=== PATIENT | female | born 1975 | race Caucasian/White ===

== ENCOUNTER 2022-07-15 12:01 | Outpatient (CLI) | payer OTHER, SELFPAY ==
[2022-07-15 13:22] LABS: Cholesterol* 215 mg/dL (90-199); Triglycerides* 217 mg/dL (40-149)
[2022-07-15 14:49] LABS: HDL Cholesterol* 97 mg/dL (>=50)
[2022-07-15 14:59] LABS: LDL Cholesterol Calculated 75 mg/dL (<100)
== END 2022-07-15 12:02 | disposition home or self-care (01) ==
PROVIDERS: PCP Family Medicine; Visit Provider Family Medicine
DX: E03.9 Hypothyroidism, unspecified (principal); I10 Essential (primary) hypertension; F41.9 Anxiety disorder, unspecified; Z13.6 Encounter for screening for cardiovascular disorders
CPT/HCPCS: 80061; 84443

== ENCOUNTER 2022-08-12 10:00 | Outpatient (CLI) | payer OTHER, SELFPAY | END 2022-08-12 10:01 | disposition home or self-care (01) | PROVIDERS: PCP Family Medicine; Visit Provider Internal Medicine | DX: Z12.11 Encounter for screening for malignant neoplasm of colon (principal); K57.30 Diverticulosis of large intestine without perforation or abscess without bleeding | CPT/HCPCS: 45378; J2250; J3010 ==

== ENCOUNTER 2023-01-10 12:28 | Emergency (ER) | payer OTHER, SELFPAY ==
[2023-01-10] VITALS (10 sets, daily range): BP systolic 117–132; BP diastolic 79–98; PULSE 92–113; RESP 16; TEMP 36.8; O2SAT 97–100; BMI 25.1
--- NOTE | 2023-01-10 12:53 | ED.NAVMDI ---
HPI - Nausea/Vomiting/Diarrhea General Time Seen by Provider: 12:53 Date Seen: 01/10/23 Chief complaint: Nausea/Vomiting Stated complaint: Vomiting Time Seen by Provider: 01/10/23 12:43 Source: patient and RN notes reviewed Mode of arrival: ambulatory Limitations: no limitations History of Present Illness HPI Narrative: This 47-year-old female is ambulatory to the ED with concern of inability to keep anything down with nausea vomiting and some diarrhea. She became ill on Monday right around 4:00 p.m.. States she felt a hot flash and then proceeded to have nausea vomiting. This has been primarily nausea and vomiting, she has had a little diarrhea. She really has not had any abdominal pain with this. Sometimes she will feel little twist sensation but she states it is absolutely not painful, would not describe it as pain. She really can not keep anything down, is trying just sips of fluids. She feels weak and dry. She is not aware of any ill contacts, no travel. She has a history of C difficile colitis and states this is nothing like it, that has a distinct odor, she has had not much the way of diarrhea compare to that. 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 She states she picked the C difficile up in the hospital during that surgery. She has had no fevers or chills. She has had some hot flashes the last 3 days but no documented fever. No blood in the vomit or diarrhea. Her daughter had oral Zofran which she tried, really did not help her. MD elicited complaint: nausea and vomiting Related Data Previous Rx's Medication Instructions Recorded amlodipine 5 mg tablet 5 mg PO QDAY #90 tabs 07/19/22 levothyroxine 150 mcg tablet 150 mcg PO QDAY #90 tabs 07/19/22 (Synthroid) levothyroxine 25 mcg tablet 12.5 mcg (1/2 x 25 mcg) PO QDAY 07/19/22 (Synthroid) #45 tabs peg 3350-electrolytes 236 240 ml PO Q10M #4,000 mL 07/19/22 gram-22.74 gram-6.74 gram-5.86 gram solution (Golytely) sertraline 100 mg tablet 150 mg (1.5 x 100 mg) PO QDAY #135 07/19/22 tabs prochlorperazine maleate 5 mg 5 mg PO TID PRN #10 tabs 01/10/23 tablet (Compazine) Allergies Allergy/AdvReac Type Severity Reaction Status Date / Time morphine Allergy Severe Nausea Verified 01/10/23 12:36 Review of Systems Status of ROS: Reports: 6 or more systems reviewed and unremarkable except as noted in History and below [facility] Medical History Mediastinal lymphadenopathy (03/28/13) ?R59.0 - Localized enlarged lymph nodes (ICD-10) History of wheezing ?Z87.898 - Personal history of other specified conditions (ICD-10) Dysfunctional uterine bleeding ?N93.8 - Other specified abnormal uterine and vaginal bleeding (ICD-10) Deep vein thrombosis ?I82.409 - Acute embolism and thrombosis of unspecified deep veins of unspecified lower extremity (ICD-10) Cystitis ?N30.90 - Cystitis, unspecified without hematuria (ICD-10) Cervical cancer (05/18/11) ?C53.9 - Malignant neoplasm of cervix uteri, unspecified (ICD-10) Acute cholecystitis due to biliary calculus ?K80.00 - Calculus of gallbladder with acute cholecystitis without obstruction (ICD-10) Surgical History Status post laparoscopic hysterectomy ?Z90.710 - Acquired absence of both cervix and uterus (ICD-10) Status post laparoscopic cholecystectomy ?Z90.49 - Acquired absence of other specified parts of digestive tract (ICD-10) History of hysteroscopy ?Z98.890 - Other specified postprocedural states (ICD-10) Social History Smoking Status: Former smoker Do you use any of these nicotine containing products: None Second hand tobacco smoke exposure: No How often do you have a drink containing alcohol: 2-3 times a week How many standard drinks containing alcohol do you have on a typical day: 3 or 4 AUDIT-C Alcohol total score: 4 Non-prescribed substance use: denies use Little interest or pleasure in doing things: not at all Feeling down, depressed, or hopeless: not at all service: No Exam Const: Vital Signs, click to edit/add: Vital Signs - 24 hr 01/10/23 12:37 01/10/23 13:12 01/10/23 13:13 Temperature 98.2 F Pulse Rate 98 101 H Pulse Rate [Pulse Oximeter] 113 H Respiratory Rate 16 Blood Pressure 117/97 H Blood Pressure [Ri ght Upper Arm] 122/79 Pulse Oximetry 97 100 100 Oxygen Delivery Me thod Room Air 01/10/23 13:34 01/10/23 13:35 Temperature Pulse Rate 106 H 103 H Pulse Rate [Pulse Oximeter] Respiratory Rate Blood Pressure 132/96 H Blood Pressure [Ri ght Upper Arm] Pulse Oximetry 100 100 Oxygen Delivery Me thod Documenting provider has reviewed patient's vital signs: yes Common normals: no apparent distress, average body habitus, oriented x3, no limitations, healthy appearing, alert and well nourished General appearance: cooperative, comfortable, well kempt and well developed HENMT: Common normals: normocephalic, head/scalp atraumatic, hearing grossly normal bilaterally and external ears normal Head and scalp: normal to inspection, normocephalic and atraumatic Face and sinus: normal facial exam External ear: external ears normal Eye: Common normals: PERRL, EOMs intact bilaterally, conjunctivae normal and no scleral icterus Conjunctiva: conjunctiva(e) normal Pupil: PERRL Neck & C-Spine: Common normals: full ROM, no lymphadenopathy and supple Resp: Common normals: normal respiratory effort, no retractions, no use of accessory muscles and clear to auscultation bilaterally Effort & inspection: able to speak in complete sentences Auscultation: clear to auscultation bilaterally Cardio: Common normals: regular rhythm, S1 normal heart sound, S2 normal heart sound, no gallops, no clicks and no murmurs Rate: tachycardic Rhythm: regular rhythm Heart sounds: S1 normal and S2 normal GI: Common normals: soft to palpation, non-tender, no hepatosplenomegaly and no masses Auscultation: hypoactive bowel sounds Palpation: soft and no hepatosplenomegaly Neuro: Common normals: oriented x3 Sensorium/orientation: alert Psych: Appearance: well kempt Course Course Hospital Course: 47-year-old female with primary nausea vomiting, some diarrhea since Monday with probable dehydration based on mildly tachycardic response. Will initiate an IV, give her L of fluids to start 4 mg IV Zofran. We will see if there is any response to the IV Zofran, consider alternative medications if this does not help her. Will get some baseline labs, do flat and upright of the abdomen just to ensure normal bowel in no concerning findings. Likely gastroenteritis but need to rule out partial bowel obstruction. If there is significant alterations in her labs or plain films, may need further imaging with CT. Reevaluation(s) Time of Reevaluation #1: 14:49 Reevaluation #1: Patient is feeling better, tolerated some crackers and orals here. She actually declined a 2nd bag of IV fluids she felt much better after 1 L of fluids and IV Zofran. Discussed nausea management at home. Her daughter has some Zofran which did not help her at home. We discussed trying some oral Compazine, she would like prescription for that. Reviewed reassuring labs, abdominal imaging not suggestive of any obstructive process. Vital Signs Vital signs: Initial Vital Signs Temperature 98.2 F 01/10/23 12:37 Temperature Source Temporal Artery Scan 01/10/23 12:37 Pulse Rate 113 H 01/10/23 12:37 Pulse Rhythm Regular 01/10/23 12:37 Pulse Strength 3+ Normal 01/10/23 12:37 Respiratory Rate 16 01/10/23 12:37 Blood Pressure 122/79 01/10/23 12:37 Blood Pressure Mean 93 01/10/23 12:37 Blood Pressure Position Sitting 01/10/23 12:37 Pulse Oximetry 97 01/10/23 12:37 Oxygen Delivery Method Room Air 01/10/23 12:37 Vital Signs Temperature 98.2 F 01/10/23 12:37 Pulse Rate 113 H 01/10/23 12:37 Respiratory Rate 16 01/10/23 12:37 Blood Pressure 122/79 01/10/23 12:37 Pulse Oximetry 97 01/10/23 12:37 Oxygen Delivery Method Room Air 01/10/23 12:37 Temperature 98.2 F 01/10/23 12:37 Pulse Rate 103 H 01/10/23 13:35 Respiratory Rate 16 01/10/23 12:37 Blood Pressure 132/96 H 01/10/23 13:35 Pulse Oximetry 100 01/10/23 13:35 Oxygen Delivery Method Room Air 01/10/23 12:37 MDM - Nausea/Vomiting/Diarrhea Differential Diagnosis Differential diagnosis: Likely traveler's diarrhea, food poisoning, gastroenteritis, clostridium difficile infection and dehydration Lab Data Attestation: I reviewed the patient's lab results. Labs: Lab Results 01/10/23 Range/Units 13:15 WBC 5.31 (4.50-11.00) K/uL RBC 3.41 L (4.00-5.20) m/uL Hgb 13.7 (12.0-16.0) gm/dL Hct 38.5 (33.0-51.0) % MCV 113 H (80-100) fL MCH 40 H (26-34) pg MCHC 36 (32-36) gm/dL RDW Coeff of Bet[place] 12.8 (11.5-15.5) % Plt Count 280 (140-440) K/uL Neut % (Auto) 75.0 H (42.0-72.0) % Lymph % (Auto) 14.9 L (20-44) % Kern % (Auto) 5.8 (0.0-11.0) % Eos % (Auto) 3.2 (0.0-7.0) % Baso % (Auto) 0.9 (0.0-3.0) % Neut # (Auto) 4.00 (1.7-7.0) K/uL Lymph # (Auto) 0.80 L (0.90-2.90) K/uL Kern # (Auto) 0.30 (0.00-0.90) K/UL Eos # (Auto) 0.17 (0.00-0.50) K/uL Baso # (Auto) 0.05 (0.00-0.30) K/uL Abs Immat Gran (auto) 0.01 (0.00-0.30) K/uL Imm/Tot Granulo (auto) 0.2 % Sodium 135 (135-149) mmol/L Potassium 3.4 L (3.6-5.1) mmol/L Chloride 101 (96-114) mmol/L Carbon Dioxide 24 (20-32) mmol/L BUN 11 (5-24) mg/dL Creatinine 0.7 (0.5-1.5) mg/dL Estimated Creat Clear 94.54 Estimated GFR 106 ml/min Glucose 108 (60-115) mg/dL Lactate 1.4 (0.5-1.9) mmol/L Calcium 9.4 (8.4-10.6) mg/dL Total Bilirubin 1.6 H (0.1-1.5) mg/dL AST 43 H (12-35) U/L ALT 19 (4-35) U/L Alkaline Phosphatase 93 (40-150) U/L C-Reactive Protein 0.5 (0.5-1.0) mg/dL Total Protein 8.8 H (6.0-8.3) g/dL Albumin 4.8 (3.3-5.0) g/dL Imaging Data Abdominal x-ray: Attestation: I have reviewed the pertinent imaging results. My impression: I see no obstructive change on my preliminary review. Radiologist's impression: Patient: JOCE SANCHEZ Facility:?[facility] Patient ID:?[id number] Site Patient ID:?[id number]. Site :?[id number] Study:?XRay Abdomen 2v-01/10/2023 1:46:43 PM Ordering Physician:Maryellen Barakat Final Report: INDICATION: Nausea and vomiting. TECHNIQUE: Flat and upright views of the abdomen and pelvis. FINDINGS: No free air on the upright image. Postsurgical changes left upper quadrant. Clear included lung bases. Calcified splenic granulomas. Surgically absent gallbladder. No radiodense urinary tract calculi identified. No bowel obstruction or ileus. Few calcified pelvic phleboliths on the left. IMPRESSION: Nonspecific bowel gas pattern without obstruction or ileus. Paucity of small bowel gas. Postsurgical change within the right and left upper quadrants. Dictated by Domo Franco MD @ 01/10/2023 2:15:42 PM (Electronic Signature) Discharge Plan Discharge Clinical Impression: Gastroenteritis Patient Disposition: Home, Self-Care Condition: Stable Instructions: Gastroenteritis (ED) Additional Instructions: Small frequent sips of clears to avoid further vomiting. Can use Compazine and see if that helps with subsequent nausea. If you are not improving over the next couple days, feel you are worsening at any point, develops increased abdominal pain with any vomiting or fever, any bloody diarrhea or vomit, do need to be re-evaluated. Activity Level: Activity as Tolerated Prescriptions: New prochlorperazine maleate [Compazine] 5 mg tablet 5 mg PO TID PRNQty: 10 0RF No Action peg 3350-electrolytes [Golytely] 236-22.74-6.74 -5.86 gram recon soln 240 ml PO Q10M Qty: 4000 0RF Rx Instructions: until fecal effluent is clear levothyroxine [Synthroid] 150 mcg tablet 150 mcg PO QDAY Qty: 90 3RF Patient Comments: take 1 tablet by mouth once daily. Rx Instructions: TOTAL DAILY DOSE = 162.5MCG levothyroxine [Synthroid] 25 mcg tablet 12.5 mcg PO QDAY Qty: 45 3RF Rx Instructions: TOTAL DAILY DOSE = 162.5MCG amlodipine 5 mg tablet 5 mg PO QDAY Qty: 90 3RF Patient Comments: TAKE ONE TABLET BY MOUTH ONE TIME DAILY sertraline 100 mg tablet 150 mg PO QDAY Qty: 135 3RF Patient Comments: take 1.5 tablets by mouth once daily. Follow Up/Referrals: Adrian Martin MD [Primary Care Provider] - Stand Alone Forms: ID.me Info Instructions
--- NOTE | 2023-01-10 12:59 | CRLHL7_ITS ---
For Patients: As a result of the Century Cures Act, medical imaging exams and procedure reports are released immediately into your electronic medical record. You may view this report before your referring provider. If you have questions, please contact your health care provider. INDICATION: Nausea and vomiting. TECHNIQUE: Flat and upright views of the abdomen and pelvis. FINDINGS: No free air on the upright image. Postsurgical changes left upper quadrant. Clear included lung bases. Calcified splenic granulomas. Surgically absent gallbladder. No radiodense urinary tract calculi identified. No bowel obstruction or ileus. Few calcified pelvic phleboliths on the left. IMPRESSION: Nonspecific bowel gas pattern without obstruction or ileus. Paucity of small bowel gas. Postsurgical change within the right and left upper quadrants. Dictated by Domo Franco MD @ 01/10/2023 2:15:42 PM (Electronically Signed)
[2023-01-10] MEDS: 0.9 % SODIUM CHLORIDE 1000 ml 1,000 ML IV (13:15)
[2023-01-10] MEDS: ONDANSETRON 2 MG/ML inj 4 MG IVP (13:15)
[2023-01-10 13:20] LABS: Lactate* 1.4 mmol/L (0.5-1.9)
[2023-01-10 13:24] LABS: Basophils Absolute Auto 0.05 K/uL (0.00-0.30); Basophils Percent Auto 0.9 % (0.0-3.0); Eosinophils Absolute Auto 0.17 K/uL (0.00-0.50); Eosinophils Percent Auto 3.2 % (0.0-7.0); Hematocrit 38.5 % (33.0-51.0); Hemoglobin* 13.7 gm/dL (12.0-16.0); Immature Granulocytes Abs Auto 0.01 K/uL (0.00-0.30); Immature Granulocytes Pct Auto 0.2 %; Lymphocytes Percent Auto 14.9 % (20-44); Mean Corpuscular HGB Conc 36 gm/dL (32-36); Mean Corpuscular Hemoglobin 40 pg (26-34); Mean Corpuscular Volume 113 fL (80-100); Monocytes Percent Auto 5.8 % (0.0-11.0); Platelet Count* 280 K/uL (140-440); RDW Coefficient of Variation % 12.8 % (11.5-15.5); Red Blood Count 3.41 m/uL (4.00-5.20); White Blood Count* 5.31 K/uL (4.50-11.00)
[2023-01-10 13:32] LABS: Slide Review Reflex Yes
[2023-01-10 13:38] LABS: Albumin* 4.8 g/dL (3.3-5.0); Chloride* 101 mmol/L (96-114); Potassium* 3.4 mmol/L (3.6-5.1); Sodium* 135 mmol/L (135-149)
[2023-01-10 13:40] LABS: Bilirubin Total* 1.6 mg/dL (0.1-1.5); Creatinine* 0.7 mg/dL (0.5-1.5); Est. Creatinine Clearance* 94.54; Estimated Glomerular Filt Rate 106 ml/min
[2023-01-10 13:41] LABS: Alanine Aminotransferase* 19 U/L (4-35); Alkaline Phosphatase* 93 U/L (40-150); Aspartate Amino Transferase* 43 U/L (12-35); Blood Urea Nitrogen* 11 mg/dL (5-24); Carbon Dioxide* 24 mmol/L (20-32); Glucose* 108 mg/dL (60-115); Total Protein* 8.8 g/dL (6.0-8.3)
[2023-01-10 13:42] LABS: Calcium* 9.4 mg/dL (8.4-10.6)
[2023-01-10 13:44] LABS: C Reactive Protein* 0.5 mg/dL (0.5-1.0)
--- NOTE | 2023-01-10 14:25 | ED.NURSE ---
Pt feeling much better after zofran and fluids. Pt requesting crackers, ok'd by Dr. Smith. Crackers and water given.
--- NOTE | 2023-01-10 15:05 | ED.NURSE ---
Pt able to tolerate crackers and oral fluids. Dr. Smith notified.
[2023-01-10 18:22] LABS: Slide Review Acceptable Review (Acceptable)
== END 2023-01-10 15:06 | disposition home or self-care (01) ==
PROVIDERS: Emergency Provider Family Medicine; PCP Family Medicine
DX: K52.9 Noninfective gastroenteritis and colitis, unspecified (principal)
CPT/HCPCS: 36415; 74019; 80053; 83605; 85025; 86140; 96361; 96374; 99284; J2405; J7030

== ENCOUNTER 2023-05-15 13:37 | Outpatient (CLI) | payer OTHER, SELFPAY ==
--- NOTE | 2023-05-15 13:40 | CRLHL7_ITS ---
For Patients: As a result of the Century Cures Act, medical imaging exams and procedure reports are released immediately into your electronic medical record. You may view this report before your referring provider. If you have questions, please contact your health care provider. BILATERAL SCREENING MAMMOGRAM WITH COMPUTER-AIDED DETECTION AND TOMOSYNTHESIS TECHNIQUE: CC and MLO views were obtained. These mammographic images have been obtained using full-field digital technique. These mammographic images were interpreted with the benefit of computer-aided detection. Breast Tomosynthesis was used in this interpretation. COMPARISON FILM: 10/20/21, 09/06/18, 05/25/17. FINDINGS: There are scattered areas of fibroglandular density IMPRESSION: There is no radiographic evidence for malignancy. ASSESSMENT: BI-RADS Category 1: Negative RECOMMENDATION: Routine screening mammogram in 1 year. A lay language report of this examination will be provided to the patient. Som Landeros M.D. Diagnostic Radiologist [email or web address] PARTH/Dictated by: Som Landeros MD @ 05/16/2023 9:14:00 AM (Electronically Signed)
== END 2023-05-15 13:38 | disposition home or self-care (01) ==
LOC: MAMMO 13:38
PROVIDERS: PCP Family Medicine; Visit Provider Obstetrics & Gynecology
DX: Z12.31 Encounter for screening mammogram for malignant neoplasm of breast (principal)
CPT/HCPCS: 77063; 77067

== ENCOUNTER 2023-12-01 13:40 | Outpatient (CLI) | payer OTHER, SELFPAY ==
--- OUTSIDE RECORDS SUMMARY | 2023-12-19 09:10 | XMS_ITS | Clinical Summary ---
Author Organization [facility] Address [place], [place] [address] Care Team Providers Care Electrical Equipment Technician Name Role Phone Adrian Martin MD Primary Care Provider [phone] Allergies Active Allergy Reactions Criticality Noted Date Comments Morphine GI Upset Medications Medication Sig Dispensed Refills Start Date End Date Status LEVOTHYROXINE 150 MCG TAB take 1 tablet (150 mcg) by oral route once daily 0 05/07/2007 Active pirbuterol (MAXAIR AUTOHALER) 200 mcg/Inhalation inhalerIndications:Co ugh Inhale 2 Puffs by mouth every 4 hours if needed. 1 Inhaler 0 03/17/2011 Active sertraline (ZOLOFT) 100 mg tablet Take 100 mg by mouth once daily. Active multivitamin (MVI) tablet Take 1 tablet by mouth once daily. Active methylPREDNISolone (MEDROL, MARY,) 4 mg tabletIndications:Nec k pain, musculoskeletal Take by mouth as instructed per packaging. 1 Package 0 03/21/2015 Active cyclobenzaprine (FLEXERIL) 10 mg tabletIndications:Nec k pain, musculoskeletal Take 1 tablet by mouth 2 times daily if needed for Muscle Spasm. 30 tablet 0 03/21/2015 Active HYDROcodone-acetamino phen, 5-325 mg, (NORCO) per tabletIndications:Nec k pain, musculoskeletal Take 1 tablet by mouth every 4 hours if needed for Pain. Max acetaminophen dose: 4000 mg in 24 hrs. 20 tablet 0 03/21/2015 Active clonazePAM (KLONOPIN) 1 mg tablet 0 02/20/2015 Active buPROPion (WELLBUTRIN SR; ZYBAN) 150 mg Sustained-Release tablet 3 02/12/2015 Active VENTOLIN HFA 90 mcg/actuation inhaler 0 01/14/2015 Act jazzmine Active Problems Problem Noted Date Diagnosed Date Clostridium difficile colitis 12/22/2012 N&V (nausea and vomiting) 12/22/2012 Dehydration, moderate 12/22/2012 C. difficile diarrhea 12/22/2012 Obesity (BMI 30-39.9) 12/17/2012 Overview: Laparoscopic sleeve gastrectomy--12/17/[address] Lewis. Fibrocystic breast 04/06/2011 Unspecified hypothyroidism 03/30/2010 Overview: Followed at the [facility] UPPER RESPIRATORY INFECTION - ACUTE 11/27/2004 GERD 06/08/2004 CONJUNCTIVITIS - MUCOPURULENT 06/08/2004 NEVUS - BENIGN 10/28/2003 WARTS 10/23/2002 Immunizations Name Administration Dates Next Due AMB Influenza, IIV3 (Age >=3 years)(Flu Clinic Only) 04/10/2009,04/15/2008 AMB Influenza, IIV4 PF (=>6 mos Flulaval,Fluzone Fluarix)(Flu Clinic Only) 04/29/2014 Influenza, IIV3 (Age >=3 years) 03/26/2012,04/23 Influenza, IIV4 04/16/2019 Tdap 05/07/2007 Tuberculin (PPD) 09/16/2009,01/15/2008, 8 Family History Medical History Relation Name Comments Genetic Other family history colon ca, hypertension~PGM- DM Relation Name Status Comments Mother Alive Other Social History Tobacco Use Types Packs/Day Years Used Date Smoking Tobacco: Former Cigarettes Q uit: 06/26/1999 Smokeless Tobacco: Never Tobacco Cessation:Counseling Given: Yes Alcohol Use Standard Drinks/Week Comments Yes 0 (1 standard drink = 0.6 oz pur e alcohol) occas Sex and Gender Information Value Date Recorded Sex Assigned at Not on file Gender Identity Not on file Sexual Orientation Not on file Obstetrics History Last Filed Vital Signs Vital Sign Reading Time Taken Comments Blood Pressure 112/77 04/02/2015 4:37 PM CDT Pulse 78 04/02/2015 4:37 PM CDT Temperature 36.8 ??C (98.3 ??F) 03/21/2015 9:30 AM CD T Respiratory Rate 18 04/02/2015 4:37 PM CDT Oxygen Saturation 99% 04/02/2015 4:37 PM CDT Inhaled Oxygen Concentration - - Weight 85.7 kg (189 lb) 04/02/2015 4:37 PM CDT Height 172.7 cm (5' 8) 12/22/2012 10:21 AM CDT Body Mass Index 28.74 12/22/2012 10:21 AM CDT Plan of Treatment Health Maintenance Due Date Last Done Comments Depression screening for age 12+ 1985 HIV for age 15-65 01/28/1988 BMI (ht and wt on same day) for age 18+ 1991 Hepatitis C screening for age 18-79 1991 Tetanus booster 05/07/2017 05/07/2007 Colonoscopy through age 75 2018 Lipids for age 45-75 2018 Mammogram for age 45-75 2018 04/27/2011, 01/27 Zoster (shingles) series for age 50+ (1 of 2) 2023 COVID-19 vaccine series (2022- season) 2023 Pap test for age 21-65 08/19/2023 , 08/19/2020, 01/22/2015, Additional history exists Influenza for age 50-64 02/25/2024 04/16/20 19, 04/29/2014, 03/26/2012, Additional history exists Tdap Completed 05/07/2007 Pneumococcal series for age 6-64 Aged Out No longer eligible based on patient's age to complete this topic Medical Devices Implanted Type Area Ld Teacher Device Identifier Shelf Expiration Date Model / Serial / Lot Seamguard Reinforcement [id number] - [id number] Implanted:Qty: 1 on 12/17/2012 by Noe Lewis MD at [facility] N/A: Stomach 04/25/2015 [id number] / / [id number] Seamguard Reinforcement [id number] - [id number] Implanted:Qty: 2 on 12/17/2012 by Noe Lewis MD at [facility] N/A: Stomach 09/24/2015 [id number] / / [id number] Procedures Procedure Name Priority Date/Time Associated Diagnosis Comments SERVICE BAR CASHIER THIN PREP PAP SCREEN IMAGED Routine 08/19/2020 2:30 PM FLIGHT OPERATIONS DISPATCH CLERK XR MAMMO BILAT SCREEN FFDM (IA) Routine 04/27/2011 4:46 PM CDT Fibrocystic breast from Last 3 Months or Most Recently Relevant to Health Maintenance Results * SERVICE BAR CASHIER THIN PREP PAP SCREEN IMAGED (08/19/2020 2:30 PM FLIGHT OPERATIONS DISPATCH CLERK) Pathologist [facility] Case Report Gynecologic Cytology Report ? Case: [id number] ? Authorizing Provider: ??Akila Washburn MD ?Collected: ? 08/19/2020 1430 ? Ordering Location: ? [facility] ?Received: ?08/21/2020 1301 ? First Screen: ?Beatrice Polk ? Pathologist: ? Annabella Mendez ? MD Cindi ? Specimen: ?SERVICE BAR CASHIER ThinPrep Vial Screening, Cervical/Vaginal ? 08/31/2020 3:08 PM [facility] INTERPRETATION/ RESULT NEGATIVE FOR INTRAEPITHELIAL LESION OR MALIGNANCY (NIL) (none) 08/31/2020 3:08 PM [facility] R NON-NEOPLASTIC FINDING(S) Parakeratosis Reactive cellular changes associated with inflammation/repa ir 08/31/2020 3:08 PM [facility] OTHER Endometrial cells in a woman more than 45 years of age. 08/31/2020 3:08 PM [facility] EDUCATIONAL NOTES & SUGGESTIONS Endometrial cells after the age of 45, particularly out of phase or after menopause, may be associated with benign endometrium, hormonal alterations and less commonly with endometrial uterine abnormalities. Clinical correlation is recommended. 08/31/2020 3:08 PM [facility] SPECIMEN ADEQUACY Satisfactory for evaluation Endocervical component present 08/31/2020 3:08 PM [facility] HPV REQUEST HPV and PAP 08/31/2020 3:08 PM [facility] Additional Information 08/31/2020 3:08 PM [facility] Comment: Interpreted at [facility] - [address], [place] [address] Automated Review Successful 08/31/2020 3:08 PM [facility] Comment:Specimen processed s uccessfully by automated electronics lead device, ThinPrep Imaging System, [employer] ANCILLARY TESTING SERVICE BAR CASHIER HPV Ordered, Please see separate report 08/31/2020 3:08 PM FLIGHT OPERATIONS DISPATCH CLERK [facility] Note The pap test is a screening technique, not a diagnostic procedure. It is used primarily to screen for squamous cancers and precursor lesions. Published studies have shown that it is subject to both false negative and false positive results. The pap test should not be used as the sole means to diagnose or exclude pre-malignant and malignant lesions. 08/31/2020 3:08 PM FLIGHT OPERATIONS DISPATCH CLERK [facility]AL [facility] Other (Cervical/Vagina l) 08/19/2020 2:30 PM FLIGHT OPERATIONS DISPATCH CLERK 08/21/2020 1:01 PM FLIGHT OPERATIONS DISPATCH CLERK Akila Washburn MD PATHOLOGY/CYTOLOGY [facility] [address] [place] [address], [place] * XR MAMMO BILAT SCREEN FFDM (04/27/2011 4:46 PM CDT) Anatomical Region Laterality Modality BREASTS, Breast Left, Breast Right Bilateral Mammography Impressions 05/10/2011 12:02 PM FLIGHT OPERATIONS DISPATCH CLERK ??There is no radiographic evidence for malignancy. ??Recommend annual mammograms. A lay language report of this examination will be provided to the patient. MAMMOGRAM ASSESSMENT: ??ACR 2 Benign Narrative 05/10/2011 12:02 PM FLIGHT OPERATIONS DISPATCH CLERK XR MAMMO BILAT SCREEN FFDM [G0202.0] CLINICAL HISTORY: ??This is an asymptomatic 36 y.o. patient. INDICATION FOR EXAM: Mammogram Screening. TECHNIQUE: CC & MLO views were obtained. ??This digital study was evaluated with the assistance of Computer-Aided Detection. ?? COMPARISON FILMS: Yes 04/25/08 FINDINGS: ??Mammographically, the breast tissue has scattered fibroglandular densities (approximately 25% - 50% glandular). ??No suspicious masses or microcalcifications. ??Benign appearing calcifications within both breasts and Benign appearing asymmetry within right breast. Procedure Note Bradford Medrano DO - 05/10/2011 XR MAMMO BILAT SCREEN FFDM [G0202.0] CLINICAL HISTORY: This is an asymptomatic 36 y.o. patient. INDICATION FOR EXAM: Mammogram Screening. TECHNIQUE: CC & MLO views were obtained. This digital study was evaluatedwith the assistance of Computer-Aided Detection. COMPARISON FILMS: Yes 04/25/08 FINDINGS: Mammographically, the breast tissue has scatteredfibroglandular densities (approximately 25% - 50% glandular). Nosuspicious masses or microcalcifications. Benign appearing calcificationswithin both breasts and Benign appearing asymmetry within right breast. IMPRESSION: There is no radiographic evidence for malignancy. Recommendannual mammograms. A lay language report of this examination will be provided to the patient. MAMMOGRAM ASSESSMENT: ACR 2 Benign Raymon Villalta MD MAMMO from Last 3 Months or Most Recently Relevant to Health Maintenance Advance Directives * Full Code (Latest Code Status on File) Date Activated Date Inactivated Comments 12/22/2012 3:29 PM 12/24/2012 3:26 PM * Full Code Date Activated Date Inactivated Comments 12/17/2012 11:46 AM 12/18/2012 5:55 PM * Full Code Date Activated Date Inactivated Comments 12/17/2012 3:43 AM 12/17/2012 11:46 AM Care Teams Electrical Equipment Technician Relationship Specialty Start Date End Date Adrian Martin MD PCP - General Family Practice 03/21/15
== END 2023-12-01 13:41 | disposition home or self-care (01) ==
LOC: NFLDREF 12-19 09:09
PROVIDERS: PCP Family Medicine; Referring Provider Family Medicine; Visit Provider Family Medicine
DX: E78.5 Hyperlipidemia, unspecified (principal); E03.9 Hypothyroidism, unspecified
CPT/HCPCS: 80053; 80061; 84439; 84443

== ENCOUNTER 2024-06-22 13:35 | Emergency (ER) | payer OTHER, SELFPAY ==
[2024-06-22 13:50] VITALS: BP 125/91; PULSE 95; RESP 18; TEMP 36.9; O2SAT 100; BMI 18.0
--- NOTE | 2024-06-22 14:02 | ED.GENADULT ---
HPI - General Adult General Time Seen by Provider: 14:02 Date Seen: 06/22/24 Chief complaint: Nausea/Vomiting Stated complaint: Vomiting, diarrhea Time Seen by Provider: 06/22/24 13:56 Source: patient and RN notes reviewed Mode of arrival: ambulatory Limitations: no limitations History of Present Illness HPI narrative: This 49-year-old female is coming in with nausea vomiting diarrhea and concern for dehydration. She has been having significant hot flashes this past week. She states she had a hysterectomy in 2020, has been Yessenia menopausal since 2019. They did believe her ovaries behind. She notes that when she has these hot flashes, they are so severe that they will steam upper glasses. They seem to be cyclic in nature, does not have them continuously. Right after the hot flash, she will either vomit or have diarrhea. She will cramp right for the diarrhea but otherwise has no abdominal pain. She does feels like she can not keep anything in or down. She tried oral Zofran at home, did not help but usually does. Imodium has not stopped her symptoms either. She did vomit about 45 minutes ago, that was the 3rd episode today. She has had 2 episodes of diarrhea. She has not had any noted fevers, not been sick with any cough or cold symptoms. Is unaware of any ill contacts. She feels like this is consistent with complications of her hot flashes. She is had 2 other episodes like this in the past. The patient does not use any marijuana. Related Data Home Medications ?Medication ?Instructions ?Recorded ?Confirmed albuterol sulfate 90 mcg/actuation 2 puff inhalation Q4-6H PRN 12/05/23 12/05/23 aerosol inhaler cholecalciferol (vitamin D3) 25 25 mcg PO QDAY 12/05/23 12/05/23 mcg (1,000 unit) capsule Previous Rx's ?Medication ?Instructions ?Recorded clonazepam 1 mg tablet 1 mg PO QHS PRN anxiety #10 tabs 09/06/23 amlodipine 5 mg tablet 5 mg PO DAILY #90 tabs 12/05/23 levothyroxine 150 mcg tablet 150 mcg PO QDAY #90 tabs 12/05/23 (Synthroid) levothyroxine 25 mcg tablet 12.5 mcg (1/2 x 25 mcg) PO QDAY 12/05/23 (Synthroid) #45 tabs sertraline 100 mg tablet 150 mg (1.5 x 100 mg) PO QDAY #135 12/05/23 tabs Allergies Allergy/AdvReac Type Severity Reaction Status Date / Time morphine Allergy Severe Nausea Verified 12/05/23 13:12 Review of Systems Status of ROS: Reports: 6 or more systems reviewed and unremarkable except as noted in History and below PFSH PFS Medical History Mediastinal lymphadenopathy (03/28/13) ?R59.0 - Localized enlarged lymph nodes (ICD-10) History of wheezing ?Z87.898 - Personal history of other specified conditions (ICD-10) Dysfunctional uterine bleeding ?N93.8 - Other specified abnormal uterine and vaginal bleeding (ICD-10) Deep vein thrombosis ?I82.409 - Acute embolism and thrombosis of unspecified deep veins of unspecified lower extremity (ICD-10) Cystitis ?N30.90 - Cystitis, unspecified without hematuria (ICD-10) Cervical cancer (05/18/11) ?C53.9 - Malignant neoplasm of cervix uteri, unspecified (ICD-10) Acute cholecystitis due to biliary calculus ?K80.00 - Calculus of gallbladder with acute cholecystitis without obstruction (ICD-10) Surgical History Status post laparoscopic hysterectomy ?Z90.710 - Acquired absence of both cervix and uterus (ICD-10) Status post laparoscopic cholecystectomy ?Z90.49 - Acquired absence of other specified parts of digestive tract (ICD-10) History of hysteroscopy ?Z98.890 - Other specified postprocedural states (ICD-10) Social History What is your current living situation?: I presently have a place to live Problems where you live: declined to answer In the past 12 months, utilities in danger of being shut off: no In past 12 months, lack of transportation kept you from medical appts, meetings, work, or getting things needed for daily living: no In the past 12 mos, have been you worried that your food would run out before you had money to buy more?: never true In the past 12 mos, the food you bought just didn't last and you didn't have money to buy more?: never true Smoking Status: Former smoker Do you use any of these nicotine containing products: None Second hand tobacco smoke exposure: No How often do you have a drink containing alcohol: 2-3 times a week How many standard drinks containing alcohol do you have on a typical day: 3 or 4 AUDIT-C Alcohol total score: 4 Non-prescribed substance use: denies use How often does anyone, including family, friends and others, physically hurt you: never How often does anyone, including family, friends and others, insult or talk down to you: rarely How often does anyone, including family, friends and others, threaten you with harm: never How often does anyone, including family, friends and others, scream or curse at you: never service: No Health Related Social Needs: Other personal risk factors, not elsewhere classified (Z91.89) Exam Const: Vital Signs, click to edit/add: Vital Signs - 24 hr 06/22/24 13:50 Temperature 98.4 F Pulse Rate [Pulse Oximeter] 95 Respiratory Rate 18 Blood Pressure [Ri ght Upper Arm] 125/91 H Pulse Oximetry 100 Oxygen Delivery Me thod Room Air Patient is a 49-year-old female that is alert, interactive, no apparent distress. Sclera clear, able speak in complete sentences. Lungs clear, good air entry, no wheezing or crackles, no tachypnea. CV regular rate and rhythm, no murmur, normal S1-S2. Abdomen is soft, nontender, nondistended, normal bowel sounds, no rebound or guarding, no organomegaly, no masses. Documenting provider has reviewed patient's vital signs: yes Course Course ED Course: This patient is concern for dehydration. We certainly can place an IV, give her L of IV fluids and 4 mg IV Zofran to see if it helps with her symptoms. Discussed checking some baseline labs to ensure an no elevated white count, no electrolyte imbalance. She is fine with that. We can see how she responds, if elevated white count, may talk to her about further workup with imaging to ensure no intra-abdominal pathology. Given that she is having nausea vomiting and diarrhea, this does not likely represent an obstructive pathology. Reevaluation(s) Time of Reevaluation #1: 15:17 Reevaluation #1: Patient is feeling much better, requesting to go home. Reviewed normal labs. She states that she is already been to a central office installer review all this. She has plenty of Zofran at home. Vital Signs Vital signs: Initial Vital Signs Temperature 98.4 F 06/22/24 13:50 Temperature Source Temporal Artery Scan 06/22/24 13:50 Pulse Rate 95 06/22/24 13:50 Respiratory Rate 18 06/22/24 13:50 Blood Pressure 125/91 H 06/22/24 13:50 Blood Pressure Mean 102 06/22/24 13:50 Blood Pressure Position Supine 06/22/24 13:50 Pulse Oximetry 100 06/22/24 13:50 Oxygen Delivery Method Room Air 06/22/24 13:50 Vital Signs Temperature 98.4 F 06/22/24 13:50 Pulse Rate 95 06/22/24 13:50 Respiratory Rate 18 06/22/24 13:50 Blood Pressure 125/91 H 06/22/24 13:50 Pulse Oximetry 100 06/22/24 13:50 Oxygen Delivery Method Room Air 06/22/24 13:50 Temperature 98.4 F 06/22/24 13:50 Pulse Rate 95 06/22/24 13:50 Respiratory Rate 18 06/22/24 13:50 Blood Pressure 125/91 H 06/22/24 13:50 Pulse Oximetry 100 06/22/24 13:50 Oxygen Delivery Method Room Air 06/22/24 13:50 Medications Administered Medications: Discontinued Medications Generic Name Dose Route Start Last Admin Trade Name Freq PRN Reason Stop Dose Admin Sodium Chloride 1,000 mls @ 1,000 mls/hr 06/22/24 14:12 06/22/24 15:11 0.9 % Sodium Chloride 1000 Ml IV 06/22/24 15:11 Infused .Q1H SONALI Infusion Ondansetron HCl 4 mg 06/22/24 14:11 06/22/24 14:26 Ondansetron 2 Mg/Ml Inj IVP 06/22/24 14:12 4 mg ONCE ONE Administration Medical Decision Making Lab Data Lab results reviewed: Yes I reviewed the patient's lab results Labs: Lab Results 06/22/24 Range/Units 14:20 WBC 5.88 (4.50-11.00) K/uL RBC 3.64 L (4.00-5.20) m/uL Hgb 13.3 (12.0-16.0) gm/dL Hct 38.4 (33.0-51.0) % MCV 106 H (80-100) fL MCH 37 H (26-34) pg MCHC 35 (32-36) gm/dL RDW Coeff of Betina 13.0 (11.5-15.5) % Plt Count 186 (140-440) K/uL Neut % (Auto) 83.5 H (42.0-72.0) % Lymph % (Auto) 8.5 L (20-44) % Sequoyah % (Auto) 5.4 (0.0-11.0) % Eos % (Auto) 1.9 (0.0-7.0) % Baso % (Auto) 0.5 (0.0-3.0) % Neut # (Auto) 4.90 (1.7-7.0) K/uL Lymph # (Auto) 0.50 L (0.90-2.90) K/uL Sequoyah # (Auto) 0.30 (0.00-0.90) K/UL Eos # (Auto) 0.11 (0.00-0.50) K/uL Baso # (Auto) 0.03 (0.00-0.30) K/uL Abs Immat Gran (auto) 0.01 (0.00-0.30) K/uL Imm/Tot Granulo (auto) 0.2 % Sodium 136 (135-149) mmol/L Potassium 4.0 (3.6-5.1) mmol/L Chloride 103 (96-114) mmol/L Carbon Dioxide 26 (20-32) mmol/L Anion Gap 7 (7-15) mEq/L BUN 11 (7-30) mg/dL Creatinine 0.6 (0.5-1.5) mg/dL Estimated Creat Clear 91.35 Estimated GFR 109 ml/min Glucose 96 (60-115) mg/dL Lactate 0.6 (0.5-1.9) mmol/L Calcium 9.1 (8.4-10.6) mg/dL Total Bilirubin 0.8 (0.1-1.5) mg/dL AST 36 H (12-35) U/L ALT 16 (4-35) U/L Alkaline Phosphatase 136 (40-150) U/L Total Protein 7.6 (6.0-8.3) g/dL Albumin 4.3 (3.3-5.0) g/dL Discharge Plan Discharge Clinical Impression: Nausea, vomiting, and diarrhea Patient Disposition: Home, Self-Care Condition: Stable Instructions: Acute Nausea and Vomiting (ED) Additional Instructions: Can continue with usual home medications for ongoing symptoms. If you have further concerns or issues, please seek re-evaluation. Activity Level: Activity as Tolerated Prescriptions: No Action cholecalciferol (vitamin D3) 25 mcg (1,000 unit) capsule 25 mcg PO QDAY albuterol sulfate 90 mcg/actuation HFA aerosol inhaler 2 puff inhalation Q4-6H PRN amlodipine 5 mg tablet 5 mg PO DAILY Qty: 90 3RF levothyroxine [Synthroid] 150 mcg tablet 150 mcg PO QDAY Qty: 90 3RF Patient Comments: take 1 tablet by mouth once daily. Rx Instructions: TOTAL DAILY DOSE = 162.5MCG levothyroxine [Synthroid] 25 mcg tablet 12.5 mcg PO QDAY Qty: 45 3RF Rx Instructions: TOTAL DAILY DOSE = 162.5MCG sertraline 100 mg tablet 150 mg PO QDAY Qty: 135 3RF Patient Comments: take 1.5 tablets by mouth once daily. clonazepam 1 mg tablet 1 mg PO QHS PRN (Reason: anxiety) Qty: 10 0RF Follow Up/Referrals: Adrian Martin MD [Primary Care Provider] - Stand Alone Forms: [employer] Info Instructions
[2024-06-22 14:24] LABS: Lactate* 0.6 mmol/L (0.5-1.9)
[2024-06-22 14:25] LABS: Basophils Absolute Auto 0.03 K/uL (0.00-0.30); Basophils Percent Auto 0.5 % (0.0-3.0); Eosinophils Absolute Auto 0.11 K/uL (0.00-0.50); Eosinophils Percent Auto 1.9 % (0.0-7.0); Hematocrit 38.4 % (33.0-51.0); Hemoglobin* 13.3 gm/dL (12.0-16.0); Immature Granulocytes Abs Auto 0.01 K/uL (0.00-0.30); Immature Granulocytes Pct Auto 0.2 %; Lymphocytes Percent Auto 8.5 % (20-44); Mean Corpuscular HGB Conc 35 gm/dL (32-36); Mean Corpuscular Hemoglobin 37 pg (26-34); Mean Corpuscular Volume 106 fL (80-100); Monocytes Percent Auto 5.4 % (0.0-11.0); Neutrophils Percent Auto 83.5 % (42.0-72.0); Platelet Count* 186 K/uL (140-440); Red Blood Count 3.64 m/uL (4.00-5.20); White Blood Count* 5.88 K/uL (4.50-11.00)
[2024-06-22] MEDS: 0.9 % SODIUM CHLORIDE 1000 ml 1,000 ML IV (14:26)
[2024-06-22] MEDS: ONDANSETRON 2 MG/ML inj 4 MG IVP (14:26)
[2024-06-22 14:29] LABS: Slide Review Reflex No
[2024-06-22 14:47] LABS: Albumin* 4.3 g/dL (3.3-5.0); Chloride* 103 mmol/L (96-114); Sodium* 136 mmol/L (135-149)
[2024-06-22 14:49] LABS: Anion Gap 7 mEq/L (7-15); Aspartate Amino Transferase* 36 U/L (12-35); Bilirubin Total* 0.8 mg/dL (0.1-1.5); Carbon Dioxide* 26 mmol/L (20-32); Creatinine* 0.6 mg/dL (0.5-1.5); Est. Creatinine Clearance* 91.35; Estimated Glomerular Filt Rate 109 ml/min; Total Protein* 7.6 g/dL (6.0-8.3)
[2024-06-22 14:50] LABS: Alanine Aminotransferase* 16 U/L (4-35); Alkaline Phosphatase* 136 U/L (40-150); Blood Urea Nitrogen* 11 mg/dL (7-30); Calcium* 9.1 mg/dL (8.4-10.6); Glucose* 96 mg/dL (60-115)
== END 2024-06-22 15:33 | disposition home or self-care (01) ==
PROVIDERS: Emergency Provider Family Medicine; PCP Family Medicine
DX: R11.2 Nausea with vomiting, unspecified (principal); R19.7 Diarrhea, unspecified
CPT/HCPCS: 36415; 80053; 83605; 85025; 96374; 99283; 99284; J2405; J7030

== ENCOUNTER 2024-07-19 07:29 | Outpatient (CLI) | payer OTHER, SELFPAY ==
--- NOTE | 2024-07-19 07:45 | CRLHL7_ITS ---
For Patients: As a result of the Century Cures Act, medical imaging exams and procedure reports are released immediately into your electronic medical record. You may view this report before your referring provider. If you have questions, please contact your health care provider. BILATERAL SCREENING MAMMOGRAM WITH COMPUTER-AIDED DETECTION AND TOMOSYNTHESIS TECHNIQUE: CC and MLO views were obtained. These mammographic images have been obtained using full-field digital technique. These mammographic images were interpreted with the benefit of computer-aided detection. Breast Tomosynthesis was used in this interpretation. COMPARISON FILM: 05/15/23, 10/20/21, 09/06/18. FINDINGS: There are scattered areas of fibroglandular density. IMPRESSION: There is no radiographic evidence for malignancy. ASSESSMENT: BI-RADS Category 1: Negative RECOMMENDATION: Routine screening mammogram in 1 year. A lay language report of this examination will be provided to the patient. Som Landeros M.D. Diagnostic Radiologist [email or web address] SP/Dictated by: Som Landeros MD @ 07/22/2024 10:00:00 AM (Electronically Signed)
== END 2024-07-19 07:30 | disposition home or self-care (01) ==
LOC: MAMMO 07:30
PROVIDERS: PCP Family Medicine; Visit Provider Family Medicine
DX: Z12.31 Encounter for screening mammogram for malignant neoplasm of breast (principal)
CPT/HCPCS: 77063; 77067

== ENCOUNTER 2024-12-31 09:39 | Outpatient (CLI) | payer OTHER, SELFPAY | END 2024-12-31 09:40 | disposition home or self-care (01) | LOC: NFLDREF 01-02 08:32 | PROVIDERS: PCP Family Medicine; Referring Provider Family Medicine; Visit Provider Family Medicine | DX: I10 Essential (primary) hypertension (principal); E03.9 Hypothyroidism, unspecified; E78.5 Hyperlipidemia, unspecified; F32.9 Major depressive disorder, single episode, unspecified | CPT/HCPCS: 80053; 80061; 84439; 84443 ==

== ENCOUNTER 2025-02-04 14:41 | Outpatient (CLI) | payer OTHER, SELFPAY | END 2025-02-04 14:42 | disposition home or self-care (01) | LOC: NFLDREF 02-07 14:19 | PROVIDERS: PCP Family Medicine; Referring Provider Family Medicine; Visit Provider Family Medicine | DX: E03.9 Hypothyroidism, unspecified (principal) | CPT/HCPCS: 84439; 84443 ==

== ENCOUNTER 2025-03-19 14:56 | Outpatient (CLI) | payer OTHER, SELFPAY | END 2025-03-19 14:57 | disposition home or self-care (01) | LOC: NFLDREF 14:56 | PROVIDERS: PCP Family Medicine; Visit Provider Family Medicine | DX: M10.9 Gout, unspecified (principal) | CPT/HCPCS: 89060 ==

== ENCOUNTER 2025-04-11 09:38 | Inpatient (IN) | payer OTHER, SELFPAY ==
[2025-04-11] VITALS (8 sets, daily range): BP systolic 100–118; BP diastolic 68–84; PULSE 98–125; RESP 16–20; TEMP 36.1–36.8; O2SAT 93–98; BMI 23.5; BMI 23.6
--- OUTSIDE RECORDS SUMMARY | 2025-04-11 09:44 | XMS_ITS | Clinical Summary ---
Author Organization [email or web address] [facility] Address [address] [place] [id number] Care Team Providers Care Data Center Consultant Name Role Phone Adrian Martin MD Primary Care Provider [phone] Allergies Active Allergy Reactions Criticality Noted Date Comments Morphine GI Upset Medications LEVOTHYROXINE 150 MCG TAB take 1 tablet (150 mcg) by oral route once daily 0 05/07/20 07 Active pirbuterol (MAXAIR AUTOHALER) 200 mcg/Inhalation inhalerIndications: Cough Inhale 2 Puffs by mouth every 4 hours if needed. 1 Inhaler 0 03/17/20 11 Active sertraline (ZOLOFT) 100 mg tablet Take 100 mg by mouth once daily. Active multivitamin (MVI) tablet Take 1 tablet by mouth once daily. Active methylPREDNISolone (MEDROL, MARY,) 4 mg tabletIndications:N felicita pain, musculoskeletal Take by mouth as instructed per packaging. 1 Package 0 03/21/20 15 Active cyclobenzaprine (FLEXERIL) 10 mg tabletIndications:N felicita pain, musculoskeletal Take 1 tablet by mouth 2 times daily if needed for Muscle Spasm. 30 tablet 0 03/21/20 15 Active HYDROcodone-acetami nophen, 5-325 mg, (NORCO) per tabletIndications:N felicita pain, musculoskeletal Take 1 tablet by mouth every 4 hours if needed for Pain. Max acetaminophen dose: 4000 mg in 24 hrs. 20 tablet 0 03/21/20 15 Active clonazePAM (KLONOPIN) 1 mg tablet 0 02/21/20 15 Active buPROPion (WELLBUTRIN SR; ZYBAN) 150 mg Sustained-Release tablet 3 02/13/20 15 Active VENTOLIN HFA 90 mcg/actuation inhaler 0 01/15/20 15 Active Active Problems Problem Noted Date Diagnosed Date Clostridium difficile colitis 12/22/2012 N&V (nausea and vomiting) 12/22/2012 Dehydration, moderate 12/22/2012 C. difficile diarrhea 12/22/2012 Obesity (BMI 30-39.9) 12/17/2012 Overview (12/22/2012): Laparoscopic sleeve gastrectomy--12/17/[address] Lewis. Fibrocystic breast 04/06/2011 Unspecified hypothyroidism 03/30/2010 Overview (03/30/2010): Followed at the [facility] UPPER RESPIRATORY INFECTION - ACUTE 11/27/2004 GERD 06/08/2004 CONJUNCTIVITIS - MUCOPURULENT 06/08/2004 NEVUS - BENIGN 10/28/2003 WARTS 10/23/2002 Immunizations Immunization Administration Dates Next Due AMB Influenza, IIV3 [...] = 0.6 oz pur e alcohol) occas Comments No Sex and Gender Information Value Date Recorded Sex Assigned at Not on file Legal Sex Female 5:44 AM AIR EXPORT LOGISTICS MANAGER Gender Identity Not on file Sexual Orientation Not on file Occupation Industry Job Start Date Job End Date NURSE Not on file Not on file Not on file Obstetrics History Last Filed Vital Signs Vital Sign Reading Time Taken Comments Blood Pressure 112/77 04/02/2015 4:37 PM CDT Pulse 78 04/02/2015 4:37 PM CDT Temperature 36.8 C (98.3 F) 03/21/2015 9:30 AM CDT Respiratory Rate 18 04/02/2015 4:37 PM CDT [...] age 18+ 1991 Hepatitis C screening for ag e 18-79 1991 Hepatitis B series for 19+ ( 1 of 3 - 19+ 3-dose series) 01/28/1992 Tetanus booster 05/07/2017 05/07/2007 Colonoscopy through age 75 2018 Lipids for age 45-75 2018 Mammogram for age 45-75 2018 04/27/2011, 01/27 Pneumococcal series for age 50+ (1 of 1 - PCV) 2023 Zoster (shingles) series for age 50+ (1 of 2) 2023 Pap test for age 21-65 08/19/2023 , 08/19/2020, 01/22/2015, Additional history exists COVID-19 vaccine series ( - 2023- season) 2025 Influenza Vaccine (#1) 2025 9, 04/29/2014, 03/26/2012, Additional history exists RSV vaccine for adults or (1 - 1-dose 75+ series) 01/28/2048 Medical Devices Implanted Type Area Pipe Coverer Device Identifier Shelf Expiration Date Model / Serial / Lot Seamguard Reinforcement [id number] - [id number] Implanted:Qty: 1 on 12/17/2012 by Noe Lewis MD at [facility] N/A: Stomach 04/25/2015 [id number] / / [id number] Torie Polanco Gec60 - [id number] Implanted:Qty: 2 on 12/17/2012 by Noe Lewis MD at [facility] N/A: Stomach 09/24/2015 [id number] / / [id number] Procedures Procedure Name Priority Date/Time Associated Diagnosis Comments WATER CHEMIST THIN PREP PAP SCREEN IMAGED Routine 08/19/2020 2:30 PM AIR EXPORT LOGISTICS MANAGER XR MAMMO BILAT SCREEN FFDM (IA) Routine 04/27/2011 4:46 PM CDT Fibrocystic breast from Last 3 Months or Most Recently Relevant to Health Maintenance Results * WATER CHEMIST THIN PREP PAP SCREEN IMAGED (08/19/2020 2:30 PM AIR EXPORT LOGISTICS MANAGER) Case Report Gynecologic Cytology Report Case: [id number] Authorizing Provider: Akila Washburn MD Collected: 08/19/2020 1430 Ordering Location: [facility] Received: 08/21/2020 1301 First Screen: Beatrice Polk Pathologist: Annabella Mendez MD Specimen: WATER CHEMIST ThinPrep Vial Screening, Cervical/Vaginal 08/31/2020 3:08 PM AIR EXPORT LOGISTICS MANAGER [facility] INTERPRETATION/ RESULT NEGATIVE FOR INTRAEPITHELIAL LESION OR MALIGNANCY (NIL) (none) 08/31/2020 3:08 PM AIR EXPORT LOGISTICS MANAGER [facility] at 1508 AIR EXPORT LOGISTICS MANAGER OTHER NON-NEOPLASTIC FINDING(S) Parakeratosis Reactive cellular changes associated with inflammation/repa ir 08/31/2020 3:08 PM AIR EXPORT LOGISTICS MANAGER [facility] OTHER Endometrial cells in a woman more than 45 years of age. 08/31/2020 3:08 PM AIR EXPORT LOGISTICS MANAGER [facility] EDUCATIONAL NOTES & SUGGESTIONS Endometrial cells after the age of 45, particularly out of phase or after menopause, may be associated with benign endometrium, hormonal alterations and less commonly with endometrial uterine abnormalities. Clinical correlation is recommended. 08/31/2020 3:08 PM AIR EXPORT LOGISTICS MANAGER [facility] SPECIMEN ADEQUACY Satisfactory for evaluation Endocervical component present 08/31/2020 3:08 PM AIR EXPORT LOGISTICS MANAGER [facility] HPV REQUEST HPV and PAP 08/31/2020 3:08 PM AIR EXPORT LOGISTICS MANAGER [facility] Additional Information 08/31/2020 3:08 PM AIR EXPORT LOGISTICS MANAGER [facility] Comment: Interpreted at [facility] - [address], [place] [address] Automated Review Successful 08/31/2020 3:08 PM AIR EXPORT LOGISTICS MANAGER [facility] Comment:Specimen processed s uccessfully by automated chemist food device, [employer] CorporationPrep Imaging System, [employer] ANCILLARY TESTING WATER CHEMIST HPV Ordered, Please see separate report 08/31/2020 3:08 PM AIR EXPORT LOGISTICS MANAGER [facility] Note The pap test is a screening technique, not a diagnostic procedure. It is used primarily to screen for squamous cancers and precursor lesions. Published studies have shown that it is subject to both false negative and false positive results. The pap test should not be used as the sole means to diagnose or exclude pre-malignant and malignant lesions. 08/31/2020 3:08 PM AIR EXPORT LOGISTICS MANAGER [facility] Other (Cervical/Vagina l) 08/19/2020 2:30 PM AIR EXPORT LOGISTICS MANAGER 08/21/2020 1:01 PM AIR EXPORT LOGISTICS MANAGER us Akila Washburn MD PATHOLOGY/CYTOLOGY Final R esult [facility] [address] [place] [address], [place] * XR MAMMO BILAT SCREEN FFDM (04/27/2011 4:46 PM CDT) Anatomical Region Laterality Modality BREASTS, Breast Left, Breast Right Bilateral Mammography Impressions 05/10/2011 12:02 PM AIR EXPORT LOGISTICS MANAGER There is no radiographic evidence for malignancy. Recommend annual mammograms. A lay language report of this examination will be provided to the patient. MAMMOGRAM ASSESSMENT: ACR 2 Benign Narrative 05/10/2011 12:02 PM AIR EXPORT LOGISTICS MANAGER XR MAMMO BILAT SCREEN FFDM [G0202.0] CLINICAL HISTORY: This is an asymptomatic 36 y.o. patient. INDICATION FOR EXAM: Mammogram Screening. TECHNIQUE: CC & MLO views were obtained. This digital study was evaluated with the assistance of Computer-Aided Detection. COMPARISON FILMS: Yes 04/25/08 FINDINGS: Mammographically, the breast tissue has scattered fibroglandular densities (approximately 25% - 50% glandular). No suspicious masses or microcalcifications. Benign appearing calcifications within both breasts and Benign appearing asymmetry within right breast. Procedure Note Marcela Bradford Basia, DO - 05/10/2011 XR MAMMO BILAT SCREEN [...] ACR 2 Benign Raymon Villalta MD MAMMO Final Result from Last 3 Months or Most Recently Relevant to Health Maintenance Insurance NARAYAN SMITH [id number] [facility] [employer] Advance Directives * Full Code (Latest Code Status on File) Date Activated Date Inactivated Comments 12/22/2012 3:29 PM 12/24/2012 3:26 PM * Full Code Date Activated Date Inactivated Comments 12/17/2012 11:46 AM 12/18/2012 5:55 PM * Full Code Date Activated Date Inactivated Comments 12/17/2012 3:43 AM 12/17/2012 11:46 AM Care Teams Data Center Consultant Relationship Specialty Start Date End Date Adrian Martin MD PCP - General Family Practice 03/21/15
--- NOTE | 2025-04-11 10:11 | CRLHL7_ITS ---
For Patients: As a result of the 21st Century Cures Act, medical imaging exams and procedure reports are released immediately into your electronic medical record. You may view this report before your referring provider. If you have questions, please contact your health care provider. Indication: Upper epigastric pain to the back, history of cholecystectomy, sleeve gastrectomy and hysterectomy Technique: Volumetric multidetector CT images of the chest, abdomen, and pelvis were obtained after the administration of intravenous contrast. 74 cc Isovue 370 low osmolar intravenous contrast Comparison: CT abdomen and pelvis with contrast September 22, 2020 FINDINGS: CHEST The thoracic inlet is unremarkable. The thyroid gland is within normal limits. The thoracic aorta is nonaneurysmal. There is no filling defect to suggest pulmonary embolus. There is demonstration of a calcified subcarinal lymph node. There is no axillary adenopathy. There is mild central bronchial thickening. There is minimal basilar atelectasis and parenchymal scar without dense consolidation, effusion or pneumothorax. The thoracic osseus structures are intact without fracture, lytic, or blastic lesion. The thoracic vertebral body heights are grossly maintained with minimal endplate Schmorl`s defects. There is no significant spondylolisthesis or displaced fracture. ABDOMEN AND PELVIS The liver is normal in attenuation and size. The portal vein is patent. There are splenic granulomas again seen. Prior cholecystectomy. There is no intrahepatic or common ductal dilatation. There is mild thickening of the gastric antrum with postoperative change status post sleeve gastrectomy. There is marked peripancreatic inflammatory change predominantly around the pancreatic head extending into the central mesenteric root. There is likely pancreatic cystic change within the pancreatic head new from previous exam measuring 1.8 centimeters in greatest dimension. No carla hypoenhancement to suggest necrosis. The adrenal glands are unremarkable without evidence of adenoma. The kidneys are preserved and corticomedullary differentiation. There is no hydronephrosis or radiopaque calculus. There is moderate stool seen throughout the colon with extensive colonic diverticulosis without evidence of diverticulitis. The appendix is unremarkable without significant inflammatory change. The abdominal aorta is nonaneurysmal without significant atherosclerotic disease. The solid pelvic viscera are grossly unremarkable. There is no pathologically enlarged epigastric, mesenteric, retroperitoneal, or pelvic sidewall lymph node. The anterior abdominal wall is grossly intact without significant hernias. There is no free air or free fluid. The visualized osseous structures are grossly intact without evidence of displaced fracture, lytic or blastic lesion. The lumbar vertebral body heights are grossly maintained with minimal endplate Schmorl`s defects. No significant spondylolisthesis or displaced fracture. Impression: 1. No acute cardiopulmonary abnormality. 2. Moderate to severe peripancreatic inflammatory change and peripancreatic edema extending into the central mesenteric root commensurate with developing pancreatitis. Cystic change of the pancreatic head is appreciated common new from previous exam. Prior cholecystectomy without obvious obstructive calculus. No evidence of hypoenhancement to suggest necrosis. 3. Stable cholecystectomy and hysterectomy changes. No other acute intra-abdominal abnormalities. Please note that all CT scans at this facility use dose modulation, iterative reconstruction, and/or weight-based dosing when appropriate to reduce radiation dose to as low as reasonably achievable. Dictated by Jorge Luis Paredes MD @ 04/11/2025 10:58:46 AM (Electronically Signed)
--- NOTE | 2025-04-11 10:14 | ED.CHESTPAIN ---
HPI - Chest Pain General Chief Complaint: Chest Pain Stated Complaint: Chest pain Time Seen by Provider: 04/11/25 09:53 History of Present Illness HPI narrative: This 50-year-old female comes in with her reporting lower anterior chest discomfort that began last evening. She states that it is constant and 8/10 in severity. She now is reporting some nausea but not any vomiting. She has not had any lightheadedness or shortness of breath and no report of diaphoresis. She has otherwise been in good health except for recent steroid course for gouty arthritis of the left knee. She does not report any exercise intolerance and has not had any injury event or strenuous activity recently. She states that she can press in her lower anterior ribs and upper abdomen and reproduce the pain. She did take a proton pump inhibitor thinking that it was reflux symptoms but did not get any relief. She states that the pain seems to radiate through to her back and also up toward her neck. Related Data Home Medications ?Medication ?Instructions ?Recorded ?Confirmed albuterol sulfate 90 mcg/actuation 2 puff inhalation Q4-6H PRN 12/05/23 03/19/25 aerosol inhaler cholecalciferol (vitamin D3) 25 25 mcg PO QDAY 12/05/23 03/19/25 mcg (1,000 unit) capsule Previous Rx's ?Medication ?Instructions ?Recorded clonazepam 1 mg tablet 1 mg PO QHS PRN anxiety #10 tabs 09/06/23 amlodipine 5 mg tablet 5 mg PO DAILY #90 tabs 12/31/24 levothyroxine 150 mcg tablet 150 mcg PO QDAY #90 tabs 12/31/24 (Synthroid) sertraline 100 mg tablet 150 mg (1.5 x 100 mg) PO QDAY #135 12/31/24 tabs prednisone 20 mg tablet 10 - 40 mg (0.5 - 2 x 20 mg) PO 03/25/25 QDAY #14 tabs Allergies Allergy/AdvReac Type Severity Reaction Status Date / Time morphine Allergy Severe Nausea Verified 04/11/25 09:42 Review of Systems Status of ROS Reports: 10 or more systems reviewed and unremarkable except as noted in History and below Narrative Constitutional: No fevers, no weight gain or loss. Eyes: No discharge. No vision changes. HENT: No congestion, no sore throat, no ear pain. Cardiovascular: No palpitations. Chest pain as described above. Respiratory: No shortness of breath, no wheezes, no cough. Gastrointestinal: No abdominal pain, no vomiting, no diarrhea. Genitourinary: No dysuria, no hematuria. Musculoskeletal: Normal range of motion. Skin: No rashes, no pruritis. Neurological: No dizziness, weakness, sensory change, speech change. Endo/Heme/Allergies: No bruising or bleeding. No polydipsia. Pysch: no suicidality, no anxiety, no insomnia. All other systems reviewed and are negative. [facility] Medical History Mediastinal lymphadenopathy (03/28/13) ?R59.0 - Localized enlarged lymph nodes (ICD-10) History of wheezing ?Z87.898 - Personal history of other specified conditions (ICD-10) Dysfunctional uterine bleeding ?N93.8 - Other specified abnormal uterine and vaginal bleeding (ICD-10) Deep vein thrombosis ?I82.409 - Acute embolism and thrombosis of unspecified deep veins of unspecified lower extremity (ICD-10) Cystitis ?N30.90 - Cystitis, unspecified without hematuria (ICD-10) Cervical cancer (05/18/11) ?C53.9 - Malignant neoplasm of cervix uteri, unspecified (ICD-10) Acute cholecystitis due to biliary calculus ?K80.00 - Calculus of gallbladder with acute cholecystitis without obstruction (ICD-10) Surgical History Status post laparoscopic hysterectomy ?Z90.710 - Acquired absence of both cervix and uterus (ICD-10) Status post laparoscopic cholecystectomy ?Z90.49 - Acquired absence of other specified parts of digestive tract (ICD-10) History of hysteroscopy ?Z98.890 - Other specified postprocedural states (ICD-10) Social History (Updated 12/31/24 @ 10:35 by Sandra Carrillo~[facility], [facility]) What is your current living situation?: I presently have a place to live Problems where you live: declined to answer In the past 12 months, utilities in danger of being shut off: no In past 12 months, lack of transportation kept you from medical appts, meetings, work, or getting things needed for daily living: no In the past 12 mos, have been you worried that your food would run out before you had money to buy more?: never true In the past 12 mos, the food you bought just didn't last and you didn't have money to buy more?: never true Smoking Status: Former smoker Do you use any of these nicotine containing products: None Second hand tobacco smoke exposure: No How often do you have a drink containing alcohol: 2-3 times a week How many standard drinks containing alcohol do you have on a typical day: 3 or 4 AUDIT-C Alcohol total score: 4 Non-prescribed substance use: denies use How often does anyone, including family, friends and others, physically hurt you: never How often does anyone, including family, friends and others, insult or talk down to you: never How often does anyone, including family, friends and others, threaten you with harm: never How often does anyone, including family, friends and others, scream or curse at you: never service: No Exam Narrative Exam Narrative: Constitutional: Well-developed, well-nourished, no acute distress. HEENT: Normocephalic, atraumatic. Neck: Normal range of motion. Nontender. Supple. Heart: Regular. No murmurs. Borderline tachycardia. Intact distal pulses. Lungs: Clear to auscultation. No wheezes, rhonchi, or rales. Abdomen: Normal bowel sounds. Nontender. No rebound tenderness. Genitalia: Deferred. Back: No midline tenderness. Normal range of motion. Extremities: Normal range of motion. No injury. Skin: Intact. No rash. Warm. No erythema or pallor. Neurologic: No altered sensation. No weakness. Alert and oriented. Psychiatric: No suicidality. No anxiety or depression. No insomnia. Nursing notes and vitals signs are reviewed. Const Vital Signs, click to edit/add: Vital Signs - 24 hr 04/11/25 09:44 04/11/25 10:25 04/11/25 10:47 Temperature 97.1 F L Pulse Rate [Pulse Oximeter] 114 H 98 Respiratory Rate 18 16 Blood Pressure [Right Upper Arm] 110/74 113/84 Pulse Oximetry 97 97 Oxygen Delivery Method Room Air Room Air Course Vital Signs Vital signs: Initial Vital Signs Temperature 97.1 F L 04/11/25 09:44 Temperature Source Temporal Artery Scan 04/11/25 09:44 Pulse Rate 114 H 04/11/25 09:44 Pulse Rhythm Regular 04/11/25 09:44 Respiratory Rate 18 04/11/25 09:44 Blood Pressure 110/74 04/11/25 09:44 Blood Pressure Mean 86 04/11/25 09:44 Pulse Oximetry 97 04/11/25 09:44 Oxygen Delivery Method Room Air 04/11/25 09:44 Vital Signs Temperature 97.1 F L 04/11/25 09:44 Pulse Rate 114 H 04/11/25 09:44 Respiratory Rate 18 04/11/25 09:44 Blood Pressure 110/74 04/11/25 09:44 Pulse Oximetry 97 04/11/25 09:44 Oxygen Delivery Method Room Air 04/11/25 09:44 Temperature 97.1 F L 04/11/25 09:44 Pulse Rate 98 04/11/25 10:47 Respiratory Rate 16 04/11/25 10:47 Blood Pressure 113/84 04/11/25 10:25 Pulse Oximetry 97 04/11/25 10:47 Oxygen Delivery Method Room Air 04/11/25 10:47 Medications Administered Medications: Discontinued Medications Generic Name Dose Route Start Last Admin Trade Name Freq PRN Reason Stop Dose Admin Hydromorphone HCl 0.5 mg 04/11/25 10:10 04/11/25 10:38 Hydromorphone 0.5 Mg/0.5 Ml Inj IVP 04/11/25 10:11 0.5 mg ONCE ONE Administration Lidocaine/Aluminum/Magnesium/Simeth 30 ml 04/11/25 10:13 04/11/25 10:17 Gi Cocktail (Visc Lido/Antacid) 30 Ml PO 04/11/25 10:14 30 ml ONCE ONE Administration Ondansetron HCl 4 mg 04/11/25 10:10 04/11/25 10:22 Ondansetron 2 Mg/Ml Inj IVP 04/11/25 10:11 4 mg ONCE ONE Administration MDM - Chest Pain MDM Narrative Medical decision making narrative: This patient comes in with upper epigastric and lower chest pain as described above. CT scan with IV contrast is obtained of her chest, abdomen, and pelvis. There are reactive changes of her pancreas typical of pancreatitis seen on these images. Her great vessels are unremarkable. Labs returned with an elevated white count at around 16 and lipase elevated at around 3300. The patient has had her gallbladder removed in is not showing any obvious signs of obstruction. She states that she does drink a alcohol drink most every night but not in excess. She has not had pancreatitis in the past. The patient received an IV dose of Dilaudid and Zofran and is feeling much better. I spoke with the hospitalist on-call, Dr. Garduno, who agrees to her admission. Lab Data Labs: Lab Results 04/11/25 04/11/25 Range/Units 10:12 10:22 WBC 16.29 H (4.50-11.00) K/uL RBC 4.29 (4.00-5.20) m/uL Hgb 15.5 (12.0-16.0) gm/dL Hct 45.1 (33.0-51.0) % MCV 105 H (80-100) fL MCH 36 H (26-34) pg MCHC 34 (32-36) gm/dL RDW Coeff of Betina 12.0 (11.5-15.5) % Plt Count 285 (140-440) K/uL Neut % (Auto) 92.1 H (42.0-72.0) % Lymph % (Auto) 3.1 L (20-44) % Pinal % (Auto) 4.4 (0.0-11.0) % Eos % (Auto) 0.2 (0.0-7.0) % Baso % (Auto) 0.1 (0.0-3.0) % Neut # (Auto) 15.00 H (1.7-7.0) K/uL Lymph # (Auto) 0.50 L (0.90-2.90) K/uL Pinal # (Auto) 0.70 (0.00-0.90) K/UL Eos # (Auto) 0.00 (0.00-0.50) K/uL Baso # (Auto) 0.00 (0.00-0.30) K/uL Abs Immat Gran (auto) 0.00 (0.00-0.30) K/uL Imm/Tot Granulo (auto) 0.1 % Sodium 131 L (135-149) mmol/L Potassium 3.9 (3.6-5.1) mmol/L Chloride 102 (96-114) mmol/L Carbon Dioxide 20 (20-32) mmol/L Anion Gap 9 (7-15) mEq/L BUN 11 (7-30) mg/dL Creatinine 0.5 (0.5-1.5) mg/dL Estimated Creat Clear 127.99 Estimated GFR 113 ml/min Glucose 108 (60-115) mg/dL Calcium 9.1 (8.4-10.6) mg/dL Lipase 3967 H (23-300) U/L POC Troponin I 0.00 L (0.01-0.04) ng/ml Imaging Data CT Chest/Ab/Pelvis: Radiologist's impression: 1. No acute cardiopulmonary abnormality. 2. Moderate to severe peripancreatic inflammatory change and peripancreatic edema extending into the central mesenteric root commensurate with developing pancreatitis. Cystic change of the pancreatic head is appreciated common new from previous exam. Prior cholecystectomy without obvious obstructive calculus. No evidence of hypoenhancement to suggest necrosis. 3. Stable cholecystectomy and hysterectomy changes. No other acute intra-abdominal abnormalities. ECG Data Attestation: I personally reviewed and interpreted this ECG as follows: Interpretation: Sinus tachycardia, rate 105 beats per minute. There are no specific ST or T-wave abnormalities. Discharge Plan Discharge Clinical Impression: Acute pancreatitis Patient Disposition: Admitted As Observation Condition: Unchanged
[2025-04-11] MEDS: GI COCKTAIL (VISC LIDO/ANTACID) 30 ML PO (10:17)
[2025-04-11] MEDS: ONDANSETRON 2 MG/ML inj 4 MG IVP (10:22)
[2025-04-11 10:31] LABS: Hematocrit* 45.1 % (33.0-51.0); Hemoglobin* 15.5 gm/dL (12.0-16.0); Immature Granulocytes Pct Auto 0.1 %; Lymphocytes Absolute Auto 0.50 K/uL (0.90-2.90); Mean Corpuscular HGB Conc 34 gm/dL (32-36); Mean Corpuscular Hemoglobin 36 pg (26-34); Mean Corpuscular Volume 105 fL (80-100); RDW Coefficient of Variation % 12.0 % (11.5-15.5); Red Blood Count* 4.29 m/uL (4.00-5.20); White Blood Count* 16.29 K/uL (4.50-11.00)
[2025-04-11 10:34] LABS: Immature Granulocytes Abs Auto 0.00 K/uL (0.00-0.30); Slide Review Reflex No
[2025-04-11 10:43] LABS: Troponin, Point-of-Care* 0.00 ng/ml (0.01-0.04)
[2025-04-11 10:45] LABS: Chloride* 102 mmol/L (96-114); Potassium* 3.9 mmol/L (3.6-5.1); Sodium* 131 mmol/L (135-149)
[2025-04-11 10:48] LABS: Anion Gap 9 mEq/L (7-15); Blood Urea Nitrogen* 11 mg/dL (7-30); Calcium* 9.1 mg/dL (8.4-10.6); Carbon Dioxide* 20 mmol/L (20-32); Creatinine* 0.5 mg/dL (0.5-1.5); Est. Creatinine Clearance* 127.99; Estimated Glomerular Filt Rate 113 ml/min; Glucose* 108 mg/dL (60-115)
[2025-04-11 11:28] LABS: Albumin* 3.9 g/dL (3.3-5.0)
[2025-04-11 11:31] LABS: Alanine Aminotransferase* 13 U/L (4-35); Alkaline Phosphatase* 93 U/L (40-150); Aspartate Amino Transferase* 22 U/L (12-35); Bilirubin Direct* 0.4 mg/dL (0.0-0.5); Bilirubin Total* 0.8 mg/dL (0.1-1.5); Total Protein* 6.8 g/dL (6.0-8.3)
--- NOTE | 2025-04-11 14:08 | PM.IMHP1 ---
Assessment and Plan Assessment and plan (1) Acute alcoholic pancreatitis: Problem comment: -[facility] protocol -LR fluid, stop -advance diet on her comfort -follow clinical course/trend labs -increase activity as tolerated 04/13/2025: Change the medication regimen to reflect a little more closely what she will be able to tolerate at home. As such I stopped the IV hydromorphone. Continue with oxycodone in the hospital for now. Stop IV ketorolac. Added ibuprofen 400 mg p.o. q.4 hours p.r.n.. Added omeprazole 20 mg p.o. daily while on ibuprofen. Continue with p.r.n. acetaminophen. Stressed adequate hydration while on a nonsteroidal anti-inflammatory medication and acetaminophen. Consider repeat CT scan of abdomen to assess for phlegmon or other complication of the pancreatitis if the pain is persistent or develops fevers. Status: Acute (2) Alcohol use disorder: Problem comment: -vodka nightly. Can't remember when she went more than 2-3 nights without drinking. last drink 9 pm on 04/10. 04/13/2025: Patient reluctant to talk about alcohol use disorder in plans to address this. Becomes quite anxious when discussing this. Status: Acute (3) Hypothyroidism: Problem comment: synthroid replacement Status: Acute (4) Major depressive disorder, single episode, unspecified: Problem comment: Zoloft 150mg daily Status: Acute (5) HTN (hypertension): Problem comment: daily amlodipine. on hold. Status: Acute Hospitalist- H&P: HPI History of Present Illness Date Seen: 04/11/25 Chief complaint: Chest pain Narrative: ADMISSION HISTORY AND PHYSICAL - HOSPITALIST Chief Complaint: Abdominal pain HPI: 50-year-old white female with a history generalized anxiety and depression, hypothyroidism, menopause who presents with 1st lifetime episode acute pancreatitis. She states her symptoms have smoldering and almost ignore oval for about 2 weeks. She suspected that it was GERD and had started her own PPI [id number]. Within the last 24 hours pain really ratcheted up. This was associated with a constant burning midepigastric discomfort that felt penetrating into her back or right shoulder blade. She says that her appetite the been fairly normal. She states that she drinks a ?couple of vodka drinks? most nights. Her last drink was 9 pm on 04/10. She can't really state the last time she went without her nightly vodka. hours ago. She does not think that drinking is a problem. She states she has never had withdrawal or seizures. She has had her gallbladder out several years ago. No recent illness other than an office visit for knee pain and presumed gout. she was on prednisone. she also has needed an increased dose of levothyroxine for her hypothyroidism. She wonders if the combination of hypothyroidism, prednisone and menopause in addition to the vodka could cause her acute pancreatitis. ER COURSE: fluids, pain management, labs and imaging. CODE STATUS: FULL CODE PCP: Adrian Martin M.D. EMERGENCY CONTACT PLAN: LozanoMirlande estradaian Rel To Pat Cell I've updated the PFSH, medications and allergies in the Expanse tabs. INVESTIGATIONS: LABS/MICRO/ECG/IMAGING Afebrile Blood pressure 109/76, 113/84 Pulses 114 - 98 Respiratory rate is 20 Pulse ox is 95% on 68.3 kilos White blood cell count is 16.3. MCV 105. Hemoglobin is 15.5. Platelet count is 285. She has a 92% neutrophils count. Sodium is 131. Her potassium is normal. Her glucose is normal. Her renal function is normal. Liver enzymes are normal. Total bilirubin is 0.8. Lipase is 4000 POC troponin is undetectable CT chest, abdomen, pelvis 1. No acute cardiopulmonary abnormality. 2. Moderate to severe peripancreatic inflammatory change and peripancreatic edema extending into the central mesenteric root commensurate with developing pancreatitis. Cystic change of the pancreatic head is appreciated common new from previous exam. Prior cholecystectomy without obvious obstructive calculus. No evidence of hypoenhancement to suggest necrosis. 3. Stable cholecystectomy and hysterectomy changes. No other acute intra-abdominal abnormalities. EKG sinus tachycardia, LAE. REVIEW OF SYSTEMS: 12-point ROS completed with patient and negative unless otherwise stated in HPI or below. PHYSICAL EXAM: CONSTITUTIONAL: Good historian. tired appearing. holding her abdomen with waves of pain. GENERAL: Well-developed. No respiratory distress. VITAL SIGNS: see record. HEENT: Sclerae are anicteric. No petechiae. CARDIAC: rhythm is regular. There is no S3 or rub. No harsh murmurs. Extremities show trace edema with symmetrical pulses. PULM: good air entry with no wheeze. ABDOMEN: mildly distended. tender across the midepigastrium. NEURO: Speech is fluent. A brief neurologic exam is negative. SKIN: No rashes, petechiae, concerning changes PSYCHIATRIC: Euthymic. ADMIT TO MEDSURG: FLOOR CARE DVT: Lovenox GI: PO intake Time spent: Today I spent 75 minutes seeing the patient, discussing the patient with ER staff, reviewing Expanse and EPIC notes/diagnostics, discussing the care plan with our care time that includes social work, PT/OT, pharmacy, RT, half-way and documenting my impressions and plan in the medical record. MEDICAL NECESSITY FOR HOSPITALIZATION Anticipated midnights in the hospital: 2 Admitting diagnosis: acute alcoholic pancreatitis Risk of morbidity and mortality: moderate Acuity is characterized as high and reflected in: lack of insight, low normal blood pressure, need for IV fluids and IV pain medication. This patient will require hospital services as outlined in the assessment and plan in order to stabilize and be safely discharged to a lower level of care. Because of the risk and acuity as described above, this patient cannot be managed at a lower level of care. LENGTH OF STAY: 2 IP ? Anticipated LOS>2 midnights due to acuity of clinical presentation requiring inpatient level of care Medical Decision Making Medical Decision Making Has patient completed a Health Care Directive: No [facility] Medical History (Updated 04/13/25 @ 16:50 by Ricci Garduno MD) HTN (hypertension) ?I10 - Essential (primary) hypertension (ICD-10) Major depressive disorder, single episode, unspecified ?F32.9 - Major depressive disorder, single episode, unspecified (ICD-10) Hypothyroidism ?E03.9 - Hypothyroidism, unspecified (ICD-10) Acute alcoholic pancreatitis ?K85.20 - Alcohol induced acute pancreatitis without necrosis or infection (ICD-10) Mediastinal lymphadenopathy (03/28/13) ?R59.0 - Localized enlarged lymph nodes (ICD-10) Deep vein thrombosis ?I82.409 - Acute embolism and thrombosis of unspecified deep veins of unspecified lower extremity (ICD-10) Cervical cancer (05/18/11) ?C53.9 - Malignant neoplasm of cervix uteri, unspecified (ICD-10) Surgical History (Updated 04/11/25 @ 14:34 by Radha Albarran MD) S/P gastric bypass ?Z98.84 - Bariatric surgery status (ICD-10) Status post laparoscopic hysterectomy ?Z90.710 - Acquired absence of both cervix and uterus (ICD-10) Status post laparoscopic cholecystectomy ?Z90.49 - Acquired absence of other specified parts of digestive tract (ICD-10) History of hysteroscopy ?Z98.890 - Other specified postprocedural states (ICD-10) Social History (Updated 12/31/24 @ 10:35 by Sandra Carrillo~[facility], [facility]) What is your current living situation?: I presently have a place to live Problems where you live: no known problems In the past 12 months, utilities in danger of being shut off: no In past 12 months, lack of transportation kept you from medical appts, meetings, work, or getting things needed for daily living: no In the past 12 mos, have been you worried that your food would run out before you had money to buy more?: never true In the past 12 mos, the food you bought just didn't last and you didn't have money to buy more?: declined to answer Highest level of school completed/degree received: Bachelor's degree Smoking Status: Former smoker Do you use any of these nicotine containing products: None Second hand tobacco smoke exposure: No How often do you have a drink containing alcohol: 2-3 times a week How many standard drinks containing alcohol do you have on a typical day: 1 or 2 AUDIT-C Alcohol total score: 3 Non-prescribed substance use: denies use Caffeine: Yes How often does anyone, including family, friends and others, physically hurt you: never How often does anyone, including family, friends and others, insult or talk down to you: never How often does anyone, including family, friends and others, threaten you with harm: never How often does anyone, including family, friends and others, scream or curse at you: never service: No Meds Home Medications and Allergies Home Medications ?Medication ?Instructions ?Recorded ?Confirmed ?Type clonazepam 1 mg tablet 1 mg PO QHS PRN anxiety #10 tabs 09/06/23 04/11/25 Rx albuterol sulfate 90 mcg/actuation 2 puff inhalation Q4-6H PRN 12/05/23 04/11/25 History aerosol inhaler cholecalciferol (vitamin D3) 25 25 mcg PO QDAY 12/05/23 04/11/25 History mcg (1,000 unit) capsule amlodipine 5 mg tablet 5 mg PO DAILY #90 tabs 12/31/24 04/11/25 Rx Held on 04/14/25. Instructions: Resume on 04/28/25. until Dr. Martin checks your blood pressure. You've been low the entire stay. levothyroxine 150 mcg tablet 150 mcg PO DAILY 04/11/25 04/11/25 History (Synthroid) sertraline 100 mg tablet 150 mg PO DAILY 04/11/25 04/11/25 History acetaminophen 500 mg tablet 1,000 mg (2 x 500 mg) PO Q6H PRN 04/14/25 Rx #100 tabs oxycodone 5 mg tablet 5 - 10 mg (1 - 2 x 5 mg) PO Q6H 04/14/25 Rx PRN #20 tabs Allergies Allergy/AdvReac Type Severity Reaction Status Date / Time morphine Allergy Severe Nausea Verified 04/11/25 09:42 Exam Const: Vital Signs, click to edit/add: Vital Signs - 24 hr 04/11/25 09:44 04/11/25 10:25 04/11/25 10:47 Temperature 97.1 F L Pulse Rate [Pulse Oximeter] 114 H 98 Pulse Rate [Right Radial] Respiratory Rate 18 16 Blood Pressure [Ri ght Arm] Blood Pressure [Ri ght Upper Arm] 110/74 113/84 Pulse Oximetry 97 97 Oxygen Delivery Me thod Room Air Room Air 04/11/25 11:15 04/11/25 12:02 Temperature 97.0 F L Pulse Rate [Pulse Oximeter] 103 H Pulse Rate [Right Radial] 102 H Respiratory Rate 20 Blood Pressure [Ri ght Arm] 109/76 Blood Pressure [Ri ght Upper Arm] 107/74 Pulse Oximetry 93 95 Oxygen Delivery Me thod Room Air Room Air Hospitalist - H&P: Result Labs Labs: Short CBC 04/11/25 Range/Units 10:22 WBC 16.29 H (4.50-11.00) K/uL Hgb 15.5 (12.0-16.0) gm/dL Hct 45.1 (33.0-51.0) % Plt Count 285 (140-440) K/uL BMP 04/11/25 10:22 Sodium 131 L Potassium 3.9 Chloride 102 Carbon Dioxide 20 BUN 11 Creatinine 0.5 Glucose 108 Calcium 9.1 Liver Function 04/11/25 Range/Units 10:22 Total Bilirubin 0.8 (0.1-1.5) mg/dL Direct Bilirubin 0.4 (0.0-0.5) mg/dL AST 22 (12-35) U/L ALT 13 (4-35) U/L Alkaline Phosphatase 93 (40-150) U/L Albumin 3.9 (3.3-5.0) g/dL
[2025-04-11] MEDS: PANTOPRAZOLE SODIUM 40 MG INJ IVP (15:21)
[2025-04-11] MEDS: LACTATED RINGERS 1000 ML 1,000 ML 500 ML IV (15:22)
[2025-04-11 15:49] LABS: Ethanol* < 0.01 % (0.01-0.03)
[2025-04-11] MEDS: LACTATED RINGERS 1000 ML 1,000 ML 125 ML IV (17:34)
--- NOTE | 2025-04-11 18:56 | PC.NURSE ---
The patient arrived to the floor for pancreatitis. The patient is reporting her pain @ 6-8/10 when pain medications wear off. Requiring a substantial amount of pain medication to keep her pain under wraps. Tachycardia is note during spot checks. LR bolus was infused, LR @ 125 currently. Independent in her room. Tolerating full liquids with no Nausea. The patients family visited throughout the afternoon. Quynh RAMOS BSN
[2025-04-11] MEDS: ENOXAPARIN 40 MG/0.4 ML INJ SUBCUT (20:52)
[2025-04-11] MEDS: SODIUM CHLORIDE 0.9 % (FLUSH) 10 ML SYRINGE 5 ML IVF (20:52)
[2025-04-11] MEDS: ZOLPIDEM 5 MG TABLET PO (22:33)
[2025-04-12] VITALS (10 sets, daily range): BP systolic 96–121; BP diastolic 57–78; PULSE 99–139; RESP 14–16; TEMP 36.2–36.6; O2SAT 92–95
[2025-04-12] MEDS: LACTATED RINGERS 1000 ML 1,000 ML 125 ML IV (01:02)
[2025-04-12] MEDS: SODIUM CHLORIDE 0.9 % (FLUSH) 10 ML SYRINGE 5 ML IVF ×3 (04:24→23:13)
[2025-04-12 06:12] LABS: Hematocrit* 40.2 % (33.0-51.0); Hemoglobin* 13.3 gm/dL (12.0-16.0); Immature Granulocytes Pct Auto 0.2 %; Mean Corpuscular HGB Conc 33 gm/dL (32-36); Mean Corpuscular Hemoglobin 36 pg (26-34); Mean Corpuscular Volume 109 fL (80-100); RDW Coefficient of Variation % 12.3 % (11.5-15.5); Red Blood Count* 3.69 m/uL (4.00-5.20); White Blood Count* 14.46 K/uL (4.50-11.00)
[2025-04-12 06:18] LABS: Immature Granulocytes Abs Auto 0.00 K/uL (0.00-0.30); Lymphocytes Absolute Auto 0.60 K/uL (0.90-2.90)
[2025-04-12 06:19] LABS: Slide Review Reflex No
--- NOTE | 2025-04-12 06:22 | PC.NURSE ---
Pt friendly and cooperative overnight. Moving throughout her room independently. CIWAS have been unremarkable despite ongoing tachycardia. HR 120's. BP's low hundreds systolically. Pt consistently rates pain 5-6/10. PRN Oxycodone and Toradol given. Pt states discomfort radiates to her back and between her shoulder blades. Pt showing more interest in food. Tolerating full liquids without difficulty and tried saltines with no issues.
[2025-04-12 06:34] LABS: Albumin* 3.1 g/dL (3.3-5.0); Chloride* 98 mmol/L (96-114); Potassium* 3.7 mmol/L (3.6-5.1); Sodium* 128 mmol/L (135-149)
[2025-04-12 06:36] LABS: Anion Gap 1 mEq/L (7-15); Blood Urea Nitrogen* 12 mg/dL (7-30); Carbon Dioxide* 29 mmol/L (20-32); Creatinine* 0.7 mg/dL (0.5-1.5); Est. Creatinine Clearance* 91.42; Estimated Glomerular Filt Rate 104 ml/min
[2025-04-12 06:37] LABS: Alanine Aminotransferase* 10 U/L (4-35); Alkaline Phosphatase* 74 U/L (40-150); Aspartate Amino Transferase* 21 U/L (12-35); Bilirubin Direct* 0.3 mg/dL (0.0-0.5); Bilirubin Total* 1.2 mg/dL (0.1-1.5); Calcium* 8.5 mg/dL (8.4-10.6); Glucose* 86 mg/dL (60-115); Total Protein* 5.7 g/dL (6.0-8.3)
[2025-04-12] MEDS: LEVOTHYROXINE 75 MCG TABLET 150 MCG PO (08:21)
[2025-04-12] MEDS: SERTRALINE 100 MG TABLET 150 MG PO (08:22)
--- NOTE | 2025-04-12 13:05 | PM.IMPN1 ---
Assessment and Plan Assessment and plan (1) Acute alcoholic pancreatitis: Problem comment: -[facility] protocol -LR fluid, stop -advance diet on her comfort -follow clinical course/trend labs -increase activity as tolerated Status: Acute (2) Alcohol use disorder: Problem comment: -vodka nightly. Can't remember when she went more than 2-3 nights without drinking. last drink 9 pm on 04/10. Status: Acute (3) Hypothyroidism: Problem comment: synthroid replacement Status: Acute (4) Major depressive disorder, single episode, unspecified: Problem comment: Zoloft 150mg daily Status: Acute (5) HTN (hypertension): Problem comment: daily amlodipine. on hold. Status: Acute (6) Hyponatremia: Problem comment: - likely due to lactated Ringer's and consumption of free water. Increase diet as tolerated. Stop IV fluids with lactated Ringer's. Status: Acute Plan 1. Reviewed impression, plans, recommendations with the patient and her 2. Answered their questions 3. They are agreeable with above stated plans and recommendation Total Time Spent Total Time Spent: 30 minutes Subjective Date Seen: 04/12/25 Interval history: Admission on history of present illness: ?50-year-old white female with a history generalized anxiety and depression, hypothyroidism, menopause who presents with 1st lifetime episode acute pancreatitis. She states her symptoms have smoldering and almost ignore oval for about 2 weeks. She suspected that it was GERD and had started her own PPI [id number]. Within the last 24 hours pain really ratcheted up. This was associated with a constant burning midepigastric discomfort that felt penetrating into her back or right shoulder blade. She says that her appetite the been fairly normal. ?She states that she drinks a ?couple of vodka drinks? most nights. Her last drink was 9 pm on 04/10. She can't really state the last time she went without her nightly vodka. hours ago. She does not think that drinking is a problem. She states she has never had withdrawal or seizures. ?She has had her gallbladder out several years ago. No recent illness other than an office visit for knee pain and presumed gout. she was on prednisone. she also has needed an increased dose of levothyroxine for her hypothyroidism. She wonders if the combination of hypothyroidism, prednisone and menopause in addition to the vodka could cause her acute pancreatitis. ?ER COURSE: fluids, pain management, labs and imaging. ?CODE STATUS: FULL CODE? 04/12/2025: Continues to have episodes of intense abdominal discomfort. Was able to sleep much of the night relatively comfortable. Tolerating clear liquids orally. Denies nausea or vomiting. No fevers, rigors, diaphoresis. Tolerating increased activities. Denies lightheadedness, dizziness, orthostasis, syncope, near syncope. No apparent signs or symptoms of alcohol withdrawal. Exam Narrative: Exam Narrative: I examine her in her hospital room with her at her side. When I assess her she appears comfortable. Did take her analgesics about 20 minutes before I came in to see her. Alert and oriented times 3-4. Lungs are clear to auscultation. Heart tones with regular rhythm. Abdomen with active bowel sounds. Subjective discomfort to palpation epigastrium. No rebound or guarding. Extremities without edema. Moves all 4 extremities. No focal motor neurologic deficits. No tremor, asterixis or ataxia. Const: Vital Signs, click to edit/add: Vital Signs - 24 hr 04/11/25 15:06 04/11/25 21:50 04/11/25 23:00 Temperature 97.8 F 98 F Pulse Rate [Right Radial] 112 H 125 H 125 H Pulse Rate [orthos tatic lying Left P ulse Oximeter] Pulse Rate [orthos tatic sitting Left Pulse Oximeter] Pulse Rate [orthos tatic standing Lef t Pulse Oximeter] Respiratory Rate 16 16 16 Blood Pressure [Ri ght Arm] 118/83 110/73 Blood Pressure [or thostatic lying Ri ght Arm] Blood Pressure [or thostatic sitting Right Arm] Blood Pressure [or thostatic standing Right Arm] Pulse Oximetry 96 96 Oxygen Delivery Me thod Room Air 04/11/25 23:00 04/12/25 03:00 04/12/25 08:23 Temperature 98.3 F 97.2 F L Pulse Rate [Right Radial] 123 H 118 H 119 H Pulse Rate [orthos tatic lying Left P ulse Oximeter] Pulse Rate [orthos tatic sitting Left Pulse Oximeter] Pulse Rate [orthos tatic standing Lef t Pulse Oximeter] Respiratory Rate 16 16 16 Blood Pressure [Ri ght Arm] 100/68 96/58 L 103/65 Blood Pressure [or thostatic lying Ri ght Arm] Blood Pressure [or thostatic sitting Right Arm] Blood Pressure [or thostatic standing Right Arm] Pulse Oximetry 98 92 95 Oxygen Delivery Me thod Room Air Room Air Room Air 04/12/25 09:07 04/12/25 11:00 Temperature Pulse Rate [Right Radial] 129 H Pulse Rate [orthos tatic lying Left P ulse Oximeter] 120 H Pulse Rate [orthos tatic sitting Left Pulse Oximeter] 125 H Pulse Rate [orthos tatic standing Lef t Pulse Oximeter] 139 H Respiratory Rate 16 Blood Pressure [Ri ght Arm] 121/72 Blood Pressure [or thostatic lying Ri ght Arm] 114/77 Blood Pressure [or thostatic sitting Right Arm] 115/78 Blood Pressure [or thostatic standing Right Arm] 121/57 L Pulse Oximetry 94 Oxygen Delivery Me thod Room Air Labs Labs: Laboratory Results - last 24 hr 04/11/25 04/11/25 04/11/25 10:14 15:04 15:37 WBC RBC Hgb Hct MCV MCH MCHC RDW Coeff of [place] Plt Count Neut % (Auto) Lymph % (Auto) [place] % (Auto) Eos % (Auto) Baso % (Auto) Neut # (Auto) Lymph # (Auto) [place] # (Auto) Eos # (Auto) Baso # (Auto) Abs Immat Gran (auto) Imm/Tot Granulo (auto) Sodium Potassium Chloride Carbon Dioxide Anion Gap BUN Creatinine Estimated Creat Clear Estimated GFR Glucose Calcium Phosphorus Total Bilirubin Direct Bilirubin AST ALT Alkaline Phosphatase C-Reactive Protein 1.5 H Total Protein Albumin Lipase TSH 2.370 Ethyl Alcohol < 0.01 Lab Acknowledgement Test Added Test Added 04/12/25 05:30 WBC 14.46 H RBC 3.69 L Hgb 13.3 Hct 40.2 MCV 109 H MCH 36 H MCHC 33 RDW Coeff of [place] 12.3 Plt Count 220 Neut % (Auto) 91.4 H Lymph % (Auto) 4.0 L [place] % (Auto) 3.1 Eos % (Auto) 1.0 Baso % (Auto) 0.3 Neut # (Auto) 13.20 H Lymph # (Auto) 0.60 L [place] # (Auto) 0.40 Eos # (Auto) 0.10 Baso # (Auto) 0.00 Abs Immat Gran (auto) 0.00 Imm/Tot Granulo (auto) 0.2 Sodium 128 L Potassium 3.7 Chloride 98 Carbon Dioxide 29 Anion Gap 1 L BUN 12 Creatinine 0.7 Estimated Creat Clear 91.42 Estimated GFR 104 Glucose 86 Calcium 8.5 Phosphorus 3.3 Total Bilirubin 1.2 Direct Bilirubin 0.3 AST 21 ALT 10 Alkaline Phosphatase 74 C-Reactive Protein Total Protein 5.7 L Albumin 3.1 L Lipase 1054 H TSH 9.390 H Ethyl Alcohol Lab Acknowledgement
[2025-04-12] MEDS: ACETAMINOPHEN 500 MG TABLET 1000 MG PO (14:17)
--- NOTE | 2025-04-12 19:34 | PC.NURSE ---
Tolerating regular diet well. The patients pain this AM was considerably high. IV pain medication was given. Toradol and oxy were given throughout the day, the patients pain is noted to be @ 3/10 throughout the late afternoon. Walking in the halls with her . Will make needs known. Quynh RAMOS BSN
[2025-04-12] MEDS: ENOXAPARIN 40 MG/0.4 ML INJ SUBCUT (21:13)
[2025-04-12] MEDS: ZOLPIDEM 5 MG TABLET PO (21:13)
[2025-04-13] VITALS (8 sets, daily range): BP systolic 97–105; BP diastolic 60–72; PULSE 91–104; RESP 14–16; TEMP 35.9–36.4; O2SAT 92–97
[2025-04-13 06:07] LABS: Lactate* 0.4 mmol/L (0.5-1.9)
[2025-04-13] MEDS: LEVOTHYROXINE 75 MCG TABLET 150 MCG PO (06:07)
[2025-04-13 06:08] LABS: Hematocrit* 38.1 % (33.0-51.0); Hemoglobin* 12.7 gm/dL (12.0-16.0); Mean Corpuscular HGB Conc 33 gm/dL (32-36); Mean Corpuscular Hemoglobin 36 pg (26-34); Mean Corpuscular Volume 109 fL (80-100); Red Blood Count* 3.49 m/uL (4.00-5.20); White Blood Count* 12.35 K/uL (4.50-11.00)
[2025-04-13] MEDS: ACETAMINOPHEN 500 MG TABLET 1000 MG PO ×3 (06:12→21:29)
--- NOTE | 2025-04-13 06:18 | PC.NURSE ---
Shift Note: Pt verbalizes she has had marked improvement with abdominal discomfort. Discussed spacing analgesic doses further apart and transitioning to tylenol. Pt is agreeable to this and is hoping to discharge home today. VS WNL and LS COA. No BM. Pt is tolerating regular diet without difficulty.
[2025-04-13 06:38] LABS: Slide Review Reflex No
[2025-04-13 06:49] LABS: Chloride* 99 mmol/L (96-114); Potassium* 3.1 mmol/L (3.6-5.1); Sodium* 130 mmol/L (135-149)
[2025-04-13 06:51] LABS: Blood Urea Nitrogen* 14 mg/dL (7-30); Creatinine* 0.6 mg/dL (0.5-1.5); Est. Creatinine Clearance* 106.66; Estimated Glomerular Filt Rate 108 ml/min
[2025-04-13 06:52] LABS: Anion Gap 2 mEq/L (7-15); Carbon Dioxide* 29 mmol/L (20-32); Cholesterol* 180 mg/dL (90-199); Triglycerides* 167 mg/dL (40-149)
[2025-04-13 06:53] LABS: Calcium* 8.6 mg/dL (8.4-10.6); Glucose* 87 mg/dL (60-115); HDL Cholesterol* 44 mg/dL (>=50)
[2025-04-13 07:06] LABS: Procalcitonin* 0.67 ng/mL (<0.50)
[2025-04-13] MEDS: POTASSIUM BICARB 25 MEQ EFFERVESCENT TAB 50 MEQ PO (10:45)
[2025-04-13] MEDS: SERTRALINE 100 MG TABLET 150 MG PO (10:47)
[2025-04-13] MEDS: IBUPROFEN 400 MG TABLET PO ×2 (14:26→18:44)
[2025-04-13] MEDS: OMEPRAZOLE 20 MG CAPSULE DR PO (15:23)
--- NOTE | 2025-04-13 16:43 | PM.IMPN1 ---
Assessment and Plan Assessment and plan (1) Acute alcoholic pancreatitis: Problem comment: -[facility] protocol -LR fluid, stop -advance diet on her comfort -follow clinical course/trend labs -increase activity as tolerated 04/13/2025: Change the medication regimen to reflect a little more closely what she will be able to tolerate at home. As such I stopped the IV hydromorphone. Continue with oxycodone in the hospital for now. Stop IV ketorolac. Added ibuprofen 400 mg p.o. q.4 hours p.r.n.. Added omeprazole 20 mg p.o. daily while on ibuprofen. Continue with p.r.n. acetaminophen. Stressed adequate hydration while on a nonsteroidal anti-inflammatory medication and acetaminophen. Consider repeat CT scan of abdomen to assess for phlegmon or other complication of the pancreatitis if the pain is persistent or develops fevers. Status: Acute (2) Alcohol use disorder: Problem comment: -vodka nightly. Can't remember when she went more than 2-3 nights without drinking. last drink 9 pm on 04/10. 04/13/2025: Patient reluctant to talk about alcohol use disorder in plans to address this. Becomes quite anxious when discussing this. Status: Acute (3) Hypothyroidism: Problem comment: synthroid replacement Status: Acute (4) Major depressive disorder, single episode, unspecified: Problem comment: Zoloft 150mg daily Status: Acute (5) HTN (hypertension): Problem comment: daily amlodipine. on hold. Status: Acute (6) Hyponatremia: Problem comment: - likely due to lactated Ringer's and consumption of free water. Increase diet as tolerated. Stop IV fluids with lactated Ringer's. Status: Acute Plan 1. Reviewed impression, plans, recommendations with patient and 2. Answered her questions are satisfaction 3. They are agreeable to above stated plans and recommendations Total Time Spent Total Time Spent: 40 minutes Subjective Date Seen: 04/13/25 Interval history: Admission on history of present illness: ?50-year-old white female with a history generalized anxiety and depression, hypothyroidism, menopause who presents with 1st lifetime episode acute pancreatitis. She states her symptoms have smoldering and almost ignore oval for about 2 weeks. She suspected that it was GERD and had started her own PPI [id number]. Within the last 24 hours pain really ratcheted up. This was associated with a constant burning midepigastric discomfort that felt penetrating into her back or right shoulder blade. She says that her appetite the been fairly normal. ?She states that she drinks a ?couple of vodka drinks? most nights. Her last drink was 9 pm on 04/10. She can't really state the last time she went without her nightly vodka. hours ago. She does not think that drinking is a problem. She states she has never had withdrawal or seizures. ?She has had her gallbladder out several years ago. No recent illness other than an office visit for knee pain and presumed gout. she was on prednisone. she also has needed an increased dose of levothyroxine for her hypothyroidism. She wonders if the combination of hypothyroidism, prednisone and menopause in addition to the vodka could cause her acute pancreatitis. ?ER COURSE: fluids, pain management, labs and imaging. ?CODE STATUS: FULL CODE? 04/12/2025: Continues to have episodes of intense abdominal discomfort. Was able to sleep much of the night relatively comfortable. Tolerating clear liquids orally. Denies nausea or vomiting. No fevers, rigors, diaphoresis. Tolerating increased activities. Denies lightheadedness, dizziness, orthostasis, syncope, near syncope. No apparent signs or symptoms of alcohol withdrawal. 04/13/2025: Continues to have intermittent epigastric discomfort. States pain sometimes as intense as 7/10. Even so she is tolerating regular diet now. Denies nausea or vomiting. Tolerating increased activities including walking in the halls. Denies orthostasis, lightheadedness, dizziness, near-syncope, syncope. She tries to bargain with me to prescriber oxycodone so she can leave the hospital and continue to manage the pain at home with oral oxycodone, acetaminophen, ibuprofen. I informed her that I am not willing to provider with oxycodone to go home with, that if she is having enough pain to warrant home use of oxycodone that she may at this time warrant continued inpatient assessment as we try to deescalate her medication regimen to approximate which she might be able handle at home safely. She is agreeable with this. Exam Narrative: Exam Narrative: Examine her in her hospital room and in the halls of the hospital as she ambulates with her . Is anxious. For the most part appears comfortable without much grimacing. Does have periods of time when she is crying she states because of the discomfort. Nevertheless, cooperative and friendly. Articulate. Alert and oriented x3. Lungs are clear to auscultation. Heart tones with regular rhythm. Abdomen with active bowel sounds, soft. Subjective discomfort to palpation in the epigastrium without rebound or guarding. Independent with transfer, station, gait. No icterus or jaundice. Const: Vital Signs, click to edit/add: Vital Signs - 24 hr 04/12/25 19:00 04/12/25 20:00 04/12/25 23:00 Temperature 97.3 F L 97.3 F L Pulse Rate [Pulse Oximeter] 99 Pulse Rate [Right Radial] 99 99 Respiratory Rate 16 16 16 Blood Pressure [Ri ght Arm] 113/73 113/73 Pulse Oximetry 93 93 Oxygen Delivery Ks thod Room Air Room Air 04/12/25 23:00 04/12/25 23:47 04/13/25 03:00 Temperature 97.4 F L 97.4 F L 96.6 F L Pulse Rate [Pulse Oximeter] 99 99 101 H Pulse Rate [Right Radial] Respiratory Rate 16 16 16 Blood Pressure [Ri ght Arm] 116/73 116/73 97/68 Pulse Oximetry 93 93 92 Oxygen Delivery Ks thod Room Air Room Air Room Air 04/13/25 04:00 04/13/25 08:00 04/13/25 14:34 Temperature 96.6 F L 97.5 F L Pulse Rate [Pulse Oximeter] 101 H 104 H 101 H Pulse Rate [Right Radial] Respiratory Rate 16 16 16 Blood Pressure [Ri ght Arm] 97/68 102/67 101/69 Pulse Oximetry 92 94 97 Oxygen Delivery Ks thod Room Air Room Air Room Air Labs Labs: Laboratory Results - last 24 hr 04/13/25 05:27 WBC 12.35 H RBC 3.49 L Hgb 12.7 Hct 38.1 MCV 109 H MCH 36 H MCHC 33 Plt Count 221 Sodium 130 L Potassium 3.1 L Chloride 99 Carbon Dioxide 29 Anion Gap 2 L BUN 14 Creatinine 0.6 Estimated Creat Clear 106.66 Estimated GFR 108 Glucose 87 Lactate 0.4 L Calcium 8.6 Phosphorus 3.1 Magnesium 1.6 C-Reactive Protein 35.9 H Triglycerides 167 H Cholesterol 180 LDL Cholesterol, Calc 103 H HDL Cholesterol 44 L Lipase 179 Procalcitonin 0.67 H
[2025-04-13] MEDS: DOCUSATE SODIUM 100 MG CAPSULE PO (18:44)
--- NOTE | 2025-04-13 19:31 | PC.NURSE ---
The patient is cooperative during cares, the patients pain this AM was tolerable, then this afternoon spiked to 8/10... Iv pain medications were discontinued and PO oxy was decreased. The patient was noted to be tearful this afternoon and expressed that her pain was not under control... MD talked to the patient and a 1x 10mg dose of oxy was received and given with adequate relief to get the pain under control. Other PRNs used were visceral, ibu and Tylenol. A heating pack is used intermittently throughout the day as well for pain control. Tolerated a regular diet. Showered this afternoon. IV discontinued per MD. The patient is hopeful to go home tomorrow. She would like to stay on a schedule with PRN medications to stay on top of her pain. Ambulated in the halls, call light within reach. Quynh RAMOS BSN
[2025-04-13] MEDS: ENOXAPARIN 40 MG/0.4 ML INJ SUBCUT (21:29)
[2025-04-13] MEDS: SODIUM CHLORIDE 0.9 % (FLUSH) 10 ML SYRINGE 5 ML IVF (21:29)
[2025-04-13] MEDS: ZOLPIDEM 5 MG TABLET PO (21:32)
[2025-04-14] MEDS: IBUPROFEN 400 MG TABLET PO (02:51)
[2025-04-14 03:00] VITALS: BP 100/65; PULSE 84; RESP 16; TEMP 36; O2SAT 97
[2025-04-14] MEDS: ACETAMINOPHEN 500 MG TABLET 1000 MG PO (04:16)
[2025-04-14 05:59] LABS: Hematocrit* 35.4 % (33.0-51.0); Hemoglobin* 11.8 gm/dL (12.0-16.0); Immature Granulocytes Abs Auto 0.03 K/uL (0.00-0.30); Immature Granulocytes Pct Auto 0.4 %; Lymphocytes Absolute Auto 0.60 K/uL (0.90-2.90); Mean Corpuscular HGB Conc 33 gm/dL (32-36); Mean Corpuscular Hemoglobin 36 pg (26-34); Mean Corpuscular Volume 108 fL (80-100); RDW Coefficient of Variation % 12.3 % (11.5-15.5); Red Blood Count* 3.29 m/uL (4.00-5.20); White Blood Count* 7.87 K/uL (4.50-11.00)
[2025-04-14] MEDS: LEVOTHYROXINE 75 MCG TABLET 150 MCG PO (06:02)
[2025-04-14 06:06] LABS: Slide Review Reflex No
[2025-04-14 06:19] LABS: Albumin* 2.8 g/dL (3.3-5.0); Chloride* 99 mmol/L (96-114); Potassium* 3.3 mmol/L (3.6-5.1); Sodium* 131 mmol/L (135-149)
[2025-04-14 06:21] LABS: Blood Urea Nitrogen* 12 mg/dL (7-30); Creatinine* 0.6 mg/dL (0.5-1.5); Est. Creatinine Clearance* 106.66; Estimated Glomerular Filt Rate 108 ml/min
[2025-04-14 06:22] LABS: Alanine Aminotransferase* 8 U/L (4-35); Alkaline Phosphatase* 97 U/L (40-150); Anion Gap 3 mEq/L (7-15); Aspartate Amino Transferase* 16 U/L (12-35); Bilirubin Direct* 0.3 mg/dL (0.0-0.5); Bilirubin Total* 0.8 mg/dL (0.1-1.5); Calcium* 8.5 mg/dL (8.4-10.6); Carbon Dioxide* 29 mmol/L (20-32); Glucose* 78 mg/dL (60-115); Total Protein* 5.8 g/dL (6.0-8.3)
--- NOTE | 2025-04-14 06:32 | PC.NURSE ---
Pt verbalized dissatisfaction as she expected staff to wake her for pain medicine throughout the night. [employer] Consultant re-discussed plan for pain management with pt. Pt currently rates pain 3-4/10
[2025-04-14 07:00] VITALS: BP 110/80; PULSE 84; RESP 16; TEMP 35.8; O2SAT 97
[2025-04-14] MEDS: OMEPRAZOLE 20 MG CAPSULE DR PO (07:49)
[2025-04-14] MEDS: DOCUSATE SODIUM 100 MG CAPSULE PO (10:19)
--- NOTE | 2025-04-14 10:54 | P.NUTNOTE_ITS ---
Nutrition Progress Note Progress Note Progress Note: RDN with diet education related to alcoholic pancreatitis. Patient presented with abdominal pain, found to have alcoholic pancreatitis. Medical history includes history generalized anxiety and depression, hypothyroidism, menopause, and alcohol use disorder. This is her 1st lifetime episode of acute pancreatitis. Current weight 68.946 kg; height 170.18 cm; BMI 23.8 kg/m2. Per weight records, weight has been stable. She is tolerating a Regular diet. RDN visited with patient and daughter. Patient reports a general healthy diet with daily alcohol use. Patient agreed to receive diet education related to pancreatitis. Patient was provided diet education on a low fat diet. Discussed foods to include and foods to avoid. Encouraged her to limit or avoid alcohol. Education also provided following a low fat diet (about 60 grams/day) long-term. Verbal and written information as well as a sample menu provided from [facility]. Patient verbalized understanding. RDN's contact information was provided and patient was encouraged to contact RDN with questions.
--- NOTE | 2025-04-14 11:52 | PC.NURSE ---
Discharge Note pt A/O x4, pain reported 4/10, prn meds given during shift. Pt received discharge education both written and verbal with daughter present in room. Pt had no questions at this time. Pt ambulated out of the facility @[id number]
--- NOTE | 2025-04-14 18:14 | PM.DS1 ---
DS: Providers Provider Date Seen: 04/14/25 Date of admission: 04/11/25 12:34 Primary care physician: Adrian Martin MD Admitting Clinician: Ricci Garduno MD Attending Physician on discharge: Radha Albarran MD [facility] Date of Discharge: 04/14/25 DS: Diagnosis Discharge Diagnosis (1) Acute alcoholic pancreatitis: Status: Acute Problem details: -improved clinically - meeting discharge criteria on 04/14 (2) Alcohol use disorder: Status: Acute Problem details: -vodka nightly. Can't remember when she went more than 2-3 nights without drinking. last drink 9 pm on 04/10. 04/13/2025: Patient reluctant to talk about alcohol use disorder in plans to address this. Becomes quite anxious when discussing this. 04/14 not an issue and doesn't really want to open up about this. I challenged her to a month of sobriety and she can see her PCP and discuss how this is going. (3) Hyponatremia: Status: Acute Problem details: -131 at discharge. no symptoms. can be followed up as an outpatient. (4) Hypothyroidism: Status: Acute Problem details: synthroid replacement (5) Major depressive disorder, single episode, unspecified: Status: Acute Problem details: Zoloft 150mg daily (6) HTN (hypertension): Status: Acute Problem details: daily amlodipine. on hold. DS: Summary Hospital Course Hospital Course: QUESTIONS TO ASK AT FOLLOW-UP: 1. How is alcohol abstinence going? 2. Any abdominal pain? Are you tolerating a normal diet? 3. Follow-up labs would include potassium, sodium. Hemoglobin. BRIEF HOSPITAL COURSE: Patient was admitted for four days. Synopsis of acute inpatient issues are outlined above. Chronic medical conditions with notable findings outlined above. Patient was managed with IV fluids and IV analgesia for her acute pancreatitis. No complications noted. She was able to progress to a normal diet. She was able to manage her discomfort at discharge with Tylenol and 5 mg of oxycodone every 6-8 hours. She did not have any it symptoms of withdrawal. She was discharged in stable and improved condition to her home. DISCHARGE MEDICATIONS: See Reconciled list - SIGNIFICANT CHANGES: Amlodipine is on hold given her relative hypotension. We continued the Synthroid and sertraline. Specific instructions to the patient and follow-up are outlined below. REVIEW OF SYSTEMS No new chest pain or dyspnea Pain controlled No voiding difficulties Tolerating diet challenge PHYSICAL EXAM: CONSTITUTIONAL: Conversive, good historian. A/O. Knows setting and context. GENERAL: Well-developed and above ideal body weight, in no respiratory distress. VITAL SIGNS: see record. HEENT: Sclerae are anicteric. No petechiae. CARDIAC: rhythm is regular. There is no S3 or rub. No harsh murmurs. Extremities show trace edema with symmetrical pulses. ABDOMEN: Soft only mildly tender across the mid epigastrium. PULM: good air entry with no wheeze. NEURO: Speech is fluent. A brief neurologic exam is negative. SKIN: No rashes, petechiae, concerning changes PSYCHIATRIC: Euthymic. DISPOSITION: Home with family Time spent on discharge 37 minutes. Status at Discharge Functional status at discharge: independent ambulation Overall status at discharge: patient is progressing back to baseline Time Spent with Patient Time attestation: Total time spent providing and/or coordinating discharge services: Time spent: Greater than 30 minutes Exam Const: Vital Signs, click to edit/add: Vital Signs - 24 hr 04/13/25 19:00 04/13/25 20:00 04/13/25 23:00 Temperature 97 F L 97 F L Pulse Rate [Pulse Oximeter] 91 91 94 Respiratory Rate 16 16 16 Blood Pressure [Ri ght Arm] 105/72 105/72 Pulse Oximetry 94 94 Oxygen Delivery Me thod Room Air Room Air 04/14/25 03:00 04/14/25 07:00 Temperature 96.8 F L 96.4 F L Pulse Rate [Pulse Oximeter] 84 84 Respiratory Rate 16 16 Blood Pressure [Ri ght Arm] 100/65 110/80 Pulse Oximetry 97 97 Oxygen Delivery Me thod Room Air Room Air DS: Data Data Completed and Pending Labs on day of discharge: Labs from last 24 hours 04/14/25 05:25 WBC 7.87 RBC 3.29 L Hgb 11.8 L Hct 35.4 MCV 108 H MCH 36 H MCHC 33 RDW Coeff of Betina 12.3 Plt Count 228 Neut % (Auto) 84.5 H Lymph % (Auto) 7.6 L Mcmullen % (Auto) 4.8 Eos % (Auto) 2.4 Baso % (Auto) 0.3 Neut # (Auto) 6.70 Lymph # (Auto) 0.60 L Mcmullen # (Auto) 0.40 Eos # (Auto) 0.19 Baso # (Auto) 0.02 Abs Immat Gran (auto) 0.03 Imm/Tot Granulo (auto) 0.4 Sodium 131 L Potassium 3.3 L Chloride 99 Carbon Dioxide 29 Anion Gap 3 L BUN 12 Creatinine 0.6 Estimated Creat Clear 106.66 Estimated GFR 108 Glucose 78 Calcium 8.5 Phosphorus 3.3 Magnesium 1.8 Total Bilirubin 0.8 Direct Bilirubin 0.3 AST 16 ALT 8 Alkaline Phosphatase 97 C-Reactive Protein 30.7 H Total Protein 5.8 L Albumin 2.8 L Discharge Plan Discharge Disposition: Home, Self-Care Date of Admission: 04/11/25 12:34 Attending Provider on Discharge: Radha Albarran Primary Care Provider: Adrian Martin Condition: Unchanged Anticipated Discharge Date/Time: 04/14/25 10:27 Discharge Medications: New acetaminophen 500 mg Tablet 1,000 mg PO Q6H PRNQty: 100 0RF oxycodone 5 mg Tablet 5 - 10 mg PO Q6H PRNQty: 20 0RF Continued cholecalciferol (vitamin D3) 25 mcg (1,000 unit) capsule 25 mcg PO QDAY albuterol sulfate 90 mcg/actuation HFA aerosol inhaler 2 puff inhalation Q4-6H PRN sertraline 100 mg tablet 150 mg PO DAILY Patient Comments: take 1.5 tablets by mouth once daily. levothyroxine [Synthroid] 150 mcg tablet 150 mcg PO DAILY clonazepam 1 mg tablet 1 mg PO QHS PRN (Reason: anxiety) Qty: 10 0RF Held amlodipine 5 mg tablet 5 mg PO DAILY Qty: 90 3RF Hold Instructions: Resume on 04/28/25. until Dr. Martin checks your blood pressure. You've been low the entire stay. Discharge Orders: Discharge Order (Routine); Ordered 04/14/25 Ordered By: Radha Albarran Patient Education: Acetaminophen (By mouth), Oxycodone, Rapid Release (By mouth), Pancreatitis (DC), Abuse of Alcohol (DC) Activity Level: No Restrictions Discharge Diet: Regular Follow Up Appointments: Adrian Martin MD [Primary Care Provider, Family Practice] - 04/22/25 8:15 am Referral Note: Follow up with Dr. Martin at [facility] for follow up 04/22 at 8:15 AM Forms: [employer] Info Instructions
== END 2025-04-14 11:28 | disposition home or self-care (01) | DRG 439 ==
LOC: ED 11:19 → MEDSURG 11:41
PROVIDERS: Family Medicine; Admitting Provider Internal Medicine; Emergency Provider Emergency Medicine Emergency Medical Services; PCP Family Medicine; Visit Provider Internal Medicine
DX: K85.20 Alcohol induced acute pancreatitis without necrosis or infection (principal); E87.1 Hypo-osmolality and hyponatremia; F10.288 Alcohol dependence with other alcohol-induced disorder; M10.062 Idiopathic gout, left knee; I10 Essential (primary) hypertension; F32.9 Major depressive disorder, single episode, unspecified; F41.1 Generalized anxiety disorder; K21.9 Gastro-esophageal reflux disease without esophagitis; Z78.0 Asymptomatic menopausal state; Z98.84 Bariatric surgery status; Z90.49 Acquired absence of other specified parts of digestive tract; E03.9 Hypothyroidism, unspecified; Z86.718 Personal history of other venous thrombosis and embolism
CPT/HCPCS: 36415; 71260; 74177; 80048; 80061; 80069; 80076; 82077; 83605; 83690; 83735; 84100; 84145; 84443; 84484; 85025; 85027; 86140; 93005; 99284; 99285; A9270; J1171; J1650; J1885; J2405; J2470; J2550; J7030; J7120; Q9967

== ENCOUNTER 2025-04-16 16:57 | Outpatient (CLI) | payer OTHER, SELFPAY | END 2025-04-16 16:58 | disposition home or self-care (01) | LOC: NFLDREF 17:01 | PROVIDERS: PCP Family Medicine; Visit Provider Family Medicine | DX: E87.1 Hypo-osmolality and hyponatremia (principal); K85.20 Alcohol induced acute pancreatitis without necrosis or infection | CPT/HCPCS: 80053; 84439; 84443 ==